=== PATIENT | male | born 1945 | race Caucasian/White ===

== ENCOUNTER → 2021-09-28 08:50 | Outpatient (BNVA) | payer MEDICARE, SELFPAY | PROVIDERS: Family Provider Internal Medicine; PCP Internal Medicine; Visit Provider Nurse Practitioner Family | DX: R33.9 Retention of urine, unspecified (principal) | CPT/HCPCS: 81003 ==

== ENCOUNTER → 2021-10-26 08:07 | Outpatient (BNVA) | payer MEDICARE, SELFPAY | PROVIDERS: Family Provider Internal Medicine; PCP Internal Medicine; Visit Provider Podiatrist Foot & Ankle Surgery | DX: M79.672 Pain in left foot (principal) | CPT/HCPCS: 73630 ==

== ENCOUNTER → 2021-12-27 09:55 | Outpatient (BNVA) | payer MEDICARE, SELFPAY | PROVIDERS: Family Provider Internal Medicine; PCP Internal Medicine; Visit Provider Urology | DX: R33.9 Retention of urine, unspecified (principal) | CPT/HCPCS: 81003 ==

== ENCOUNTER 2022-01-03 14:45 | Outpatient (CLI) | payer MEDICARE, SELFPAY | END 2022-01-03 14:46 | disposition home or self-care (01) | LOC: SPT 01-04 08:46 | PROVIDERS: Family Provider Internal Medicine; PCP Internal Medicine; Visit Provider Podiatrist Foot & Ankle Surgery | DX: Z46.89 Encounter for fitting and adjustment of other specified devices (principal); M72.2 Plantar fascial fibromatosis; M21.40 Flat foot [pes planus] (acquired), unspecified foot | CPT/HCPCS: 97760; L3030 ==

== ENCOUNTER → 2022-12-07 07:35 | Outpatient (BNVA) | payer MEDICARE, SELFPAY | PROVIDERS: Family Provider Internal Medicine; PCP Internal Medicine; Visit Provider Podiatrist Foot & Ankle Surgery | DX: L60.0 Ingrowing nail (principal) | CPT/HCPCS: 11750 ==

== ENCOUNTER 2024-12-12 17:39 | Emergency (ER) | payer MEDICARE, SELFPAY ==
[2024-12-12 17:41] VITALS: BP 146/81; PULSE 95; RESP 17; TEMP 36.8; O2SAT 95; BMI 27.1
--- NOTE | 2024-12-12 17:59 | W.ED.ALLEREA ---
Documented by User: Lei Oakley DO 12/13/24 06:30 HPI - Allergic Reaction General: Chief complaint: Allergic Reaction Stated complaint: allergic reaction Time Seen by Provider: 12/12/24 17:45 History of Present Illness: HPI narrative: 79-year-old male presents to the emergency room complaints of allergic reaction is eating several different snacks he is not sure what causes it was some table chips as well as with him that he began having difficult time feeling like he had a hot flash sensation little bit of a rash he called tell the nurse advised him to call 911 and normal and recommended route they gave him 0.3 of epi and 50 of IM Benadryl patient states he feels much better. He is not having difficulty speech swallowing or breathing. No stridor. No appreciable rash he said the flush sensation has resolved Associated symptoms: Deny abdominal pain Related Data Home Medications ?Medication ?Instructions ?Recorded ?Confirmed amlodipine 2.5 mg tablet 2.5 mg PO DAILY 09/28/21 12/07/22 losartan 100 mg tablet 100 mg PO DAILY 09/28/21 12/07/22 magnesium citrate 100 mg capsule 100 mg PO DAILY 09/28/21 12/07/22 multivitamin 1 tab PO DAILY 09/28/21 12/07/22 zinc 50 mg tablet 50 mg PO DAILY 09/28/21 12/07/22 Previous Rx's ?Medication ?Instructions ?Recorded Custom Molded Orthotics #1 ea 10/26/21 cephalexin 500 mg capsule 500 mg PO BID 7 days #14 caps 12/07/22 silver sulfadiazine 1 % topical 1 applic topical BID 2 weeks #50 12/07/22 cream grams prednisone 50 mg tablet 50 mg PO DAILY #3 tabs 12/12/24 Allergies Allergy/AdvReac Type Severity Reaction Status Date / Time No Known Allergies Allergy Verified 12/07/22 07:45 Review of Systems Const: Denies: fever(s) or chills Card: Denies: chest pain Resp: Denies: dyspnea GI: Denies: abdominal pain : Denies: dysuria, urinary frequency or urinary urgency Musc: Denies: neck pain or back pain Skin/Breast: Denies: rash PFSH ED PFSH: Medical History Peyronie disease HTN (hypertension) Urinary retention Family History Father , at age 92 Stroke Hypertension Mother , AT AGE 95 COLON CANCER Hypertension Cancer Other CAD (coronary artery disease) Social History Smoking and tobacco/nicotine status: former use of tobacco/nicotine Alcohol intake: current Alcohol intake frequency: few times a month Marital status: Current occupational status: retired Physical Exam Const: COMMON NORMALS: no acute distress GENERAL APPEARANCE: cooperative and comfortable ORIENTATION/CONSCIOUSNESS: Yes awake, Yes oriented to person, Yes oriented to place and Yes oriented to time HENMT: COMMON NORMALS: normocephalic, atraumatic and hearing grossly normal bilaterally HEAD & SCALP: normocephalic and atraumatic Resp: COMMON NORMALS: normal respiratory effort, No retractions, No use of accessory muscles and clear to auscultation bilaterally AUSCULTATION: clear to auscultation bilaterally Cardio: COMMON NORMALS: regular rate, regular rhythm and No murmurs present (Cardio) RATE: regular rate RHYTHM: regular rhythm GI: COMMON NORMALS: Soft to palpation and No hepatosplenomegaly present AUSCULTATION: Yes normoactive bowel sounds PALPATION: Yes Soft to palpation, No Tenderness to palpation present (GI), No Guarding due to palpation present (GI) and Yes No hepatosplenomegaly present Extremity: COMMON NORMALS: normal to inspection, capillary refill normal, no clubbing, cyanosis or edema, no calf tenderness and no pedal edema Neuro: SENSORIUM/ORIENTATION: Yes oriented to person, Yes oriented to place and Yes oriented to time Skin: COMMON NORMALS: no rashes or lesions noted GENERAL SKIN EXAM: no rashes or lesions noted Course Vital Signs: Vital signs: Vital Signs Temperature 98.2 F 12/12/24 17:41 Pulse Rate 79 12/12/24 20:17 Respiratory Rate 24 H 12/12/24 20:17 Blood Pressure 142/84 12/12/24 20:17 Pulse Oximetry 93 12/12/24 20:17 Oxygen Delivery Me thod Room Air 12/12/24 17:41 MDM - Allergic Reaction Medical Decision Making Care signed out to Dr. Sky at change of shift. See final notes for diagnosis and disposition. I assumed care of this patient at shift change. Patient had an allergic reaction to an unknown substance around 3 PM this afternoon. He states he ate some nuts and chocolate and also Fritos around that time. He called 911. Paramedics administered Benadryl. Patient received a steroid injection here. His symptoms have completely resolved. Patient was discharged in stable condition with a prescription for prednisone 50 mg p.o. daily for 3 days. Recommended he take Benadryl [id number] as needed. Follow-up with primary care physician on Sunday if this has not resolved. Medical Records I reviewed the patient's medical records. Lab Data I reviewed the patient's lab results. Discharge Plan Discharge Patient Disposition: Home Clinical Impression: Allergic reaction Qualifiers: Encounter type: initial encounter Qualified Code(s): T78.40XA - Allergy, unspecified, initial encounter Condition: Stable Prescriptions: New prednisone 50 mg tablet 50 mg PO DAILY Qty: 3 0RF No Action losartan 100 mg tablet 100 mg PO DAILY amlodipine 2.5 mg tablet 2.5 mg PO DAILY magnesium citrate 100 mg capsule 100 mg PO DAILY zinc 50 mg tablet 50 mg PO DAILY multivitamin Tablet 1 tab PO DAILY (DME) Custom Molded Orthotics See Rx Instructions .Route .MEDSUPPLY Qty: 1 0RF Rx Instructions: As directed silver sulfadiazine 1 % cream 1 applic topical BID 14 Days Qty: 50 2RF Rx Instructions: apply a 1.5 mm thickness cephalexin 500 mg capsule 500 mg PO BID 7 Days Qty: 14 0RF Discharge Orders: Discharge ED (Routine); Ordered 12/12/24 Ordered By: Marques Sky Referrals: Jean-Pierre Eden DO [Primary Care Provider] - Activity Restrictions/Additional Instructions: Follow-up with your physician on Sunday if not resolved. Print Language: Vincentian Coding Level of Care Code ED Financial Intern for Chg Fwd Documented by User: Marques Sky MD 12/12/24 19:26 HPI - Allergic Reaction General: Chief complaint: Allergic Reaction Stated complaint: allergic reaction Time Seen by Provider: 12/12/24 17:45 Related Data Home Medications ?Medication ?Instructions ?Recorded ?Confirmed amlodipine 2.5 mg tablet 2.5 mg PO DAILY 09/28/21 12/07/22 losartan 100 mg tablet 100 mg PO DAILY 09/28/21 12/07/22 magnesium citrate 100 mg capsule 100 mg PO DAILY 09/28/21 12/07/22 multivitamin 1 tab PO DAILY 09/28/21 12/07/22 zinc 50 mg tablet 50 mg PO DAILY 09/28/21 12/07/22 Previous Rx's ?Medication ?Instructions ?Recorded Custom Molded Orthotics #1 ea 10/26/21 cephalexin 500 mg capsule 500 mg PO BID 7 days #14 caps 12/07/22 silver sulfadiazine 1 % topical 1 applic topical BID 2 weeks #50 12/07/22 cream grams prednisone 50 mg tablet 50 mg PO DAILY #3 tabs 12/12/24 Allergies Allergy/AdvReac Type Severity Reaction Status Date / Time No Known Allergies Allergy Verified 12/07/22 07:45 PFS ED PFSH: Medical History Peyronie disease HTN (hypertension) Urinary retention Family History Father , at age 92 Stroke Hypertension Mother , AT AGE 95 COLON CANCER Hypertension Cancer Other CAD (coronary artery disease) Social History Smoking and tobacco/nicotine status: former use of tobacco/nicotine Alcohol intake: current Alcohol intake frequency: few times a month Marital status: Current occupational status: retired Course Vital Signs: Vital signs: Vital Signs Temperature 98.2 F 12/12/24 17:41 Pulse Rate 79 12/12/24 20:17 Respiratory Rate 24 H 12/12/24 20:17 Blood Pressure 142/84 12/12/24 20:17 Pulse Oximetry 93 12/12/24 20:17 Oxygen Delivery Me thod Room Air 12/12/24 17:41 MDM - Allergic Reaction Medical Decision Making I assumed care of this patient at shift change. Patient had an allergic reaction to an unknown substance around 3 PM this afternoon. He states he ate some nuts and chocolate and also Fritos around that time. He called 911. Paramedics administered Benadryl. Patient received a steroid injection here. His symptoms have completely resolved. Patient was discharged in stable condition with a prescription for prednisone 50 mg p.o. daily for 3 days. Recommended he take Benadryl [id number] as needed. Follow-up with primary care physician on Sunday if this has not resolved. No radiology studies performed this visit Discharge Plan Discharge Patient Disposition: Home Clinical Impression: Allergic reaction Qualifiers: Encounter type: initial encounter Qualified Code(s): T78.40XA - Allergy, unspecified, initial encounter Condition: Stable Prescriptions: New prednisone 50 mg tablet 50 mg PO DAILY Qty: 3 0RF No Action losartan 100 mg tablet 100 mg PO DAILY amlodipine 2.5 mg tablet 2.5 mg PO DAILY magnesium citrate 100 mg capsule 100 mg PO DAILY zinc 50 mg tablet 50 mg PO DAILY multivitamin Tablet 1 tab PO DAILY (DME) Custom Molded Orthotics See Rx Instructions .Route .MEDSUPPLY Qty: 1 0RF Rx Instructions: As directed silver sulfadiazine 1 % cream 1 applic topical BID 14 Days Qty: 50 2RF Rx Instructions: apply a 1.5 mm thickness cephalexin 500 mg capsule 500 mg PO BID 7 Days Qty: 14 0RF Discharge Orders: Discharge ED (Routine); Ordered 12/12/24 Ordered By: Marques Sky Referrals: Jean-Pierre Eden DO [Primary Care Provider] - Activity Restrictions/Additional Instructions: Follow-up with your physician on Sunday if not resolved. Print Language: Vincentian Coding Level of Care Code ED Financial Intern for Elvis Mclean
[2024-12-12] MEDS: methylPREDNISolone sod succ 125 mg/2 mL INJ IVP (18:56)
[2024-12-12 18:59] VITALS: BP 135/69; PULSE 84; O2SAT 92
[2024-12-12 19:29] VITALS: BP 137/72; PULSE 86; RESP 20; O2SAT 95
[2024-12-12 19:30] VITALS: BP 141/82; PULSE 84; RESP 28; O2SAT 91
[2024-12-12 19:45] VITALS: BP 141/82; PULSE 82; RESP 26; O2SAT 93
[2024-12-12 20:17] VITALS: BP 142/84; PULSE 79; RESP 24; O2SAT 93
== END 2024-12-12 20:34 | disposition home or self-care (01) ==
PROVIDERS: Emergency Provider Emergency Medicine; PCP Internal Medicine
DX: T78.40XA Allergy, unspecified, initial encounter (principal); X58.XXXA Exposure to other specified factors, initial encounter; I10 Essential (primary) hypertension; Z87.891 Personal history of nicotine dependence
CPT/HCPCS: 96374; 99284; J2919

== ENCOUNTER 2025-02-09 13:15 | Outpatient (CLI) | payer MEDICARE, SELFPAY ==
--- NOTE | 2025-02-09 13:45 | USCV_ITS ---
Mauricio Sanchez Age: 79 Gender: M : 1945 Exam Date: 02/09/2025 13:42 Ordering Phys: Guillermo Baez MD Technologist: USR [place] [facility]: AAA HISTORY: Diameter (cm) AP x Transverse x Length Velocity (cm/s) Waveform Prox Aorta: 1.70 x 2.16 x 86.30 Biphasic Mid Aorta: 1.86 x 1.82 x 77.80 Biphasic Distal Aorta: 2.02 x 2.39 x 5.80 53.20 Biphasic Right Iliac Prox: 0.92 x 1.08 x 87.80 Biphasic Left Iliac Prox: 1.05 x 0.97 x 86.30 Biphasic Stent Prox Landing x x Aneurysmal Sac Max x x Lt Lat Sac Dim Rt Lat Sac Dim Stent Dist Landing x x Right Iliac Stent x x Left Iliac Stent x x Right Renal Art Left Renal Art FINDINGS: Comparison:. 06/29/16 No evidence of abdominal aortic or bilateral iliac aneurysm. Ectatic abdominal aorta with evidence of atherosclerotic plaque noted. There is evidence of atherosclerotic plaque no significan stenosis in the right common iliac artery. There is evidence of atherosclerotic plaque no significan stenosis in the left common iliac artery. CONCLUSIONS Ectatic abdominal aorta with evidence of atherosclerotic plaque noted. No evidence of abdominal aortic aneurysm. Dr. Rosaline Glez DO (Electronically Signed) Final Date: 09 February 2025 15:12 S
== END 2025-02-09 13:16 | disposition home or self-care (01) ==
PROVIDERS: PCP Family Medicine; Visit Provider Family Medicine
DX: I77.811 Abdominal aortic ectasia (principal); I70.8 Atherosclerosis of other arteries
CPT/HCPCS: 93978

== ENCOUNTER → 2025-02-16 08:35 | Outpatient (BNVA) | payer MEDICARE, SELFPAY | PROVIDERS: PCP Family Medicine; Visit Provider Nurse Practitioner Family | DX: L82.1 Other seborrheic keratosis (principal); L57.8 Other skin changes due to chronic exposure to nonionizing radiation; L81.4 Other melanin hyperpigmentation; D18.01 Hemangioma of skin and subcutaneous tissue; L85.3 Xerosis cutis; D48.5 Neoplasm of uncertain behavior of skin; L57.0 Actinic keratosis | CPT/HCPCS: 11102; 17000; 69100; 99203 ==

== ENCOUNTER → 2025-03-04 08:28 | Outpatient (BNVA) | payer MEDICARE, SELFPAY | PROVIDERS: PCP Family Medicine; Visit Provider Dermatology | DX: D03.21 Melanoma in situ of right ear and external auricular canal (principal) | CPT/HCPCS: 11643; 15260 ==

== ENCOUNTER → 2025-06-16 10:25 | Outpatient (BNVA) | payer MEDICARE, SELFPAY | PROVIDERS: PCP Family Medicine; Visit Provider Nurse Practitioner Family | DX: L81.4 Other melanin hyperpigmentation (principal); L57.8 Other skin changes due to chronic exposure to nonionizing radiation; D22.5 Melanocytic nevi of trunk; L82.1 Other seborrheic keratosis; Z08 Encounter for follow-up examination after completed treatment for malignant neoplasm; Z85.820 Personal history of malignant melanoma of skin; L57.0 Actinic keratosis | CPT/HCPCS: 17004; 99213 ==

== ENCOUNTER → 2025-08-13 14:55 | Outpatient (BNVA) | payer MEDICARE, SELFPAY | PROVIDERS: PCP Family Medicine; Visit Provider Family Medicine | DX: Z91.014 Allergy to mammalian meats (principal); Z12.5 Encounter for screening for malignant neoplasm of prostate; R33.9 Retention of urine, unspecified | CPT/HCPCS: 84153; 86003; 86008 ==

== ENCOUNTER → 2025-08-19 11:20 | Outpatient (BNVA) | payer MEDICARE, SELFPAY | PROVIDERS: PCP Family Medicine; Visit Provider Dermatology | DX: L57.0 Actinic keratosis (principal) | CPT/HCPCS: 96573 ==

== ENCOUNTER 2025-08-27 15:20 | Outpatient (CLI) | payer MEDICARE, SELFPAY ==
--- NOTE | 2025-08-27 15:28 | XR_ITS ---
WS: [id number] Exam: XR knee RT 3V* [id number] Date/Time of Exam: 08/27/2025 3:37 PM Reason For Exam: right knee pain Comparison 12/26/2023. No fracture. The joint compartments are preserved. No joint effusion. Normal soft tissues. XR/XR knee RT 3V* [id number] IMPRESSION: 1. Negative RIGHT knee.
== END 2025-08-27 15:21 | disposition home or self-care (01) ==
PROVIDERS: PCP Family Medicine
DX: M25.561 Pain in right knee (principal)
CPT/HCPCS: 73562

== ENCOUNTER 2025-09-19 06:47 | Emergency (ER) | payer MEDICARE, SELFPAY ==
--- OUTSIDE RECORDS SUMMARY | 2025-09-19 06:51 | XMS_ITS | Clinical Summary ---
Author Organization [facility] Address [address] [place] [address] Care Team Providers Care Rn Behavioral Health Name Role Phone Rashawn Levine Primary Care Provider Unavail able Allergies Active Allergy Reactions Criticality Noted Date Comments Alpha-Gal (Hxebegigi-Umdyc-3,3-Galactose) Anaphylaxis High 12/26/2024 Doxycycline Unknown 01/31/2024 ?allergy Medications losartan (COZAAR) 100 mg tablet Take 1 Tablet by mouth daily. 01/11/2024 Active amLODIPine (NORVASC) 2.5 mg tablet Take 2.5 mg by mouth daily. Active multivitamin (DAILY-LAMINE) tablet Take 1 Tablet by mouth daily. 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); Epiretinal membrane (ERM) of right eye; Combined form of age-related cataract, left eye; Pseudophakia of right eye 07/14/2025 External Device Data STL ABSTRACTION Provider, Abstract 07/14/2025 External Device Data [facility] ABSTRACTION Provider, Abstract from Last 3 Months Immunizations Immunization Administration Dates Next Due Dt Dtp Dtap Vaccine 10/27/1999 Family History Medical History Relation Name Comments Stroke Father Cancer Mother Macular Degen Mother Relation Name Status Comments Father Mother Social History Tobacco Use Types Packs/Day Years Used Date Smoking Tobacco: Former Cigarettes Passive Smoke Exposure: Past Smokeless Tobacco: Never Tobacco Cessation:Counseling Given: No Comments:Smoked for a couple years in college Alcohol Use Standard Drinks/Week Comments Not Currently 0 (1 standard drink = 0.6 oz pure alcohol) 2 small glasses of wine daily Feeling Safe Answer Date Recorded Are you in a relationship wi th someone who hurts you emotionally and/or physically? 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 Gender Identity Not on file Sexual Orientation Not on file Last Filed Vital Signs Vital Sign Reading Time Taken Comments Blood Pressure 134/83 01/31/2024 5:22 PM CDT Pulse 71 01/31/2024 5:22 PM CDT Temperature 36.4 C (97.5 F) 01/31/2024 5:22 PM CDT Respiratory Rate 18 01/31/2024 5:22 PM CDT Oxygen Saturation 97% 01/31/2024 5:22 PM CDT Inhaled Oxygen Concentration - - Weight 92.5 kg (204 lb) 12/22/2024 8:04 AM APPLICATIONS ENGINEER MANUFACTURING Height 180.3 cm (5' 11 ) 12/22/2024 8:04 AM APPLICATIONS ENGINEER MANUFACTURING Body Mass Index 28.45 12/22/2024 8:04 AM APPLICATIONS ENGINEER MANUFACTURING Plan of Treatment Upcoming Encounters Date Type Department Care Team (Late st Contact Info) Description 07/20/2026 1:10 PM CDT Office Visit [facility] [place] [address] [address] Ame Marie MD [address] [place] [address] Health Maintenance Due Date Last Done Comments PNEUMOCOCCAL VACCINE 50+ YEA RS (1 of 1 - PCV) 1995 ZOSTER VACCINE (1 of 2) 1995 DTAP/TDAP/TD VACCINES (2 - Tdap) 10/27/2009 10/27/19 99 RSV VACCINE (60+ or ) (1 - 1-dose 75+ series) 2020 INFLUENZA VACCINE (#1) 2025 3, 01/05/2023, 08/01/2022, Additional history exists COVID-19 Vaccine Completed 12/05/2024, , 08/03/2023, Additional history exists Procedures Procedure Name Priority Date/Time Associated Diagnosis Comments EYE DROPS Routine 07/20/2025 2:18 PM CDT 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 OCT, RETINA - OU - BOTH EYES Routine 07/20/2025 1:11 PM CDT 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, left eye Epiretinal membrane (ERM) of right eye from Last 3 Months Results * EYE DROPS (07/20/2025 2:18 PM CDT) Narrative [facility] - 07/20/2025 2:18 PM CDT Medications Eye Drops: 2 Drop phenylephrine 2.5 % Route: Topical, Site: Eye, Bilateral ND: 64351-666-14, Lot: [id number], Expiration date: 09/28/2026 2 Drop proparacaine 0.5 % Route: Topical, Site: Eye, Bilateral NDC: 29189-138-95, Lot: [id number], Expiration date: 02/26/2027 2 Drop tropicamide 1 % Route: Topical, Site: Eye, Bilateral NDC: 71336-296-00, Lot: [id number], Expiration date: 10/29/2026 Notes Eye drop orders per protocol for Basic Language Translator Eye Exam (Dilated) 1 Drop proparacaine (OPHTHAINE) 0.5% ophthalmic solution prior to tonometry 1 Drop tropicamide (MYDRIACYL) 1% ophthalmic solution 1 Drop phenylephrine (AK-DILATE, MYDFRIN) 2.5% ophthalmic solution Ame Marie MD OPHTH CLINIC PROCEDURES Final R esult [facility] CLIA# [id number] [address] [place] [address] * OCT, RETINA - OU - BOTH EYES (07/20/2025 1:11 PM CDT) Narrative [facility] [place] - 07/20/2025 2:19 PM CDT Optical Coherence Tomography ordered to evaluate the status of the macula: RIGHT EYE: Epiretinal membrane with psedohole LEFT EYE: The OCT shows normal retinal contours, with a good foveal depression of normal thickness. The RPE appears healthy. Normal OCT Ame Marie MD OPHTH TOMOGRAPHY Final Result Performing Organization Address City/[facility] Co de Phone Number [facility] [place] OPHTH[facility]Y ORDERS from Last 3 Months Insurance [id number] [place], [place] [id number] [place] [id number] MEDICARE PART A AND B MEDICARE PART A AND B [facility] [id number] Care Teams Rn Behavioral Health Relationship Specialty Start Date End Date Rashawn Levine PA NO ADDRESS ON FILE PCP - General 04/09/08
--- OUTSIDE RECORDS SUMMARY | 2025-09-19 06:51 | XMS_ITS | Encounter Summary ---
Author Organization [facility] Address [address] [place] [address] Care Team Providers Care Regional Liaison Name Role Phone Rashawn Levine Primary Care Provider Unavail able Encounter Details Date Type Department Care Team (Late st Contact Info) Description 12/10/2002 Outpatient Historical [facility] Family Medicine- [address] [address] Larry Dumont MD [address] [phone] Social History Tobacco Use Types Packs/Day Years Used Date Smoking Tobacco: Never Assessed Sex and Gender Information Value Date Recorded Sex Assigned at Not on file 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
--- OUTSIDE RECORDS SUMMARY | 2025-09-19 06:51 | XMS_ITS | Encounter Summary ---
Author Organization 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
--- OUTSIDE RECORDS SUMMARY | 2025-09-19 06:51 | XMS_ITS | Clinical Summary ---
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
--- OUTSIDE RECORDS SUMMARY | 2025-09-19 06:51 | XMS_ITS | Encounter Summary ---
Author Organization [facility] Address [address] [place] [address] Care Team Providers Care Bill Peddler Name Role Phone Rashawn Levine Primary Care Provider Unavail able Encounter Details Date Type Department Care Team (Latest Contact Info) Description 10/14/2002 Outpatient Historical [facility] Medicine- [place] [id number] [place] [address] Larry Dumont MD [address] [address] HYPERTENSION NOS (Primary Dx); SCREENING MAL NEOP-PROSTATE Social History Tobacco Use Types Packs/Day Years Used Date Smoking Tobacco: Never Assessed Sex and Gender Information Value Date Recorded Sex Assigned at Not on file Legal Sex Male 4:40 AM PRESS SET UP Gender Identity Not on file Sexual Orientation Not on file documented as of this encounter Plan of Treatment Not on file documented as of this encounter Visit Diagnoses Diagnosis Unspecified essential hypertension- Primary Special screening for malignant neoplasm of prostate documented in this encounter Care Teams Bill Peddler Relationship Specialty Start Date End Date Rashawn Levine PA NO ADDRESS ON FILE PCP - General 04/09/08 documented as of this encounter
--- OUTSIDE RECORDS SUMMARY | 2025-09-19 06:51 | XMS_ITS | Encounter Summary ---
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
--- OUTSIDE RECORDS SUMMARY | 2025-09-19 06:51 | XMS_ITS | Encounter Summary ---
Author Organization [facility] Address [address] [place] [address] Care Team Providers Care Blend Plant Operator Name Role Phone Rashawn Levine Primary Care Provider Unavail able Encounter Details Date Type Department Care Team (Latest Contact Info) Description 01/16/2002 Outpatient Historical [facility] Family Medicine- [place] [id number] [place] [address] Larry Dumont MD [address] [phone] HYPERTENSION NOS (Primary Dx) Social History Tobacco Use Types Packs/Day Years Used Date Smoking Tobacco: Never Assessed Sex and Gender Information Value Date Recorded Sex Assigned at Not on file 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
--- OUTSIDE RECORDS SUMMARY | 2025-09-19 06:51 | XMS_ITS | Data Portability ---
Author Organization [facility] Scottie Leon [facility] Address [address] [address] Assessment Encounter Date Assessment Date Assessment LastModified by Organization Details LastModified Time 10/08/2024 10/08/2024 Patient presente d to office today for their Medicare Annual Wellness Visit. Education was provided on healthy nutrition, including a diet rich in fruits and vegetables, minimizing simple carbohydrates, salt, and saturated fats. Encouraged regular cardiovascular exercise such as walking at least 30 minutes daily, 5 times per week. Emphasized preventive health measures and educated pt on fall prevention and community-based lifestyle interventions to help reduce health risks and promote healthy living. Not available 10/08/2024 16:00:46 Plan of Treatment Reminders Order Date Submit Date Provider Last Modified By Organization Details Last Modified Time Details Appointments None recorded. Lab CMP, serum or plasma 2023 024 ADINA [facility], [address] [facility] [address], [address], 5 14:51:07 TSH, serum or plasma 2022 023 [facility] ([facility]), [address] [place], [address], 3 11:55:10 PSA, serum or plasma 2022 023 [facility], [address] [place] [address], [address] [place], [address], 3 06:19:29 Referral urologist referral 2022 023 [email or web address] Not available 3 16:24:01 Procedures cerumen removal using irrigation (PROC) 2023 024 [email or web address] 2 [facility], [address] [facility], [facility], [place], [address], 4 10:55:11 Surgeries None recorded. Imaging XR, knee, 3 view 2023 024 ADINA Not available 4 17:00:41 Medication Orders EpiPen 2-Willis 0.3 mg/0.3 mL injection, auto-inject or 2024 025 [facility], [address] [facility] [address], [place], [place], [id number], 5 12:34:05 losartan 100 mg tablet 2022 023 [facility], [address] [facility] [address] [facility] [address], [place], [place], [id number], 4 11:41:14 amlodipine 2.5 mg tablet 2022 023 [facility], [address] [facility] [address], [place], [place], [id number], 4 11:41:15 Patient TargetsNo targets recorded. Patient Instructions Encounter Date Encounter Id Patient Instructions Last Modified By Organization Details Last Modified Time 12/26/2023 [id number] ears cleaned ernesto e sure no broken bone in knee; much better [email or web address] Not available 12/26/2023 11:01:17 10/08/2024 [id number] advance care planning: care instructions Not available 10/16/2024 13:35:10 preventing falls : care instructions Not available 10/16/2024 13:35:10 Learning About Being Physically Active Not available 10/16/2024 13:35:09 nutrition for older adults: care instructions Not available 10/16/2024 13:35:09 Call or return for questions or concerns. Not available 10/08/2024 16:07:10 Discussed and explained advance directives such as standard forms to the patient. 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 Referring Physician: Jean-Pierre Eden, Internal Medicine, Encounter Date: 06/18/2023 Results Created Date Observation Date Name Description Value Unit Range Abnormal Flag Note LastModifiedBy Organization Detail LastModifiedTime 06/18/2006/18/2023 CBC WBC 6.9 x10 4.5-10 .5 Not Available [facility] [address], [place], [address], 06/18/2023 12:01:41 06/18/20 23 06/18/2023 CBC RBC 4.55 x10 4.30-5 .90 Not Available [facility] [address], [place], [address], 06/18/2023 12:01:41 06/18/20 23 06/18/2023 CBC HGB 15.2 g/dL 13.5-1 8.0 Not Available [facility] [address] [facility] 1, [place], [address], 06/18/2023 12:01:41 06/18/20 23 06/18/2023 CBC HCT 43.7 % 35.0-6 0.0 Not Available [facility] [address], [place], [address], 06/18/2023 12:01:41 06/18/20 23 06/18/2023 CBC MCV 96.1 fL 80.0-9 9.9 Not Available [facility] [address], [place], [address], 06/18/2023 12:01:41 06/18/20 23 06/18/2023 CBC MCH 33.4 pg 27.0-3 2.0 high Not Available [facility] [address] [facility] Beltr[facility] 1, [place], [address], 06/18/2023 12:01:41 06/18/20 23 06/18/2023 CBC MCHC 34.7 g/dL 32.0-3 6.0 Not Available [facility] [address] [facility] 1, [place], [address], 06/18/2023 12:01:41 06/18/20 23 06/18/2023 CBC RDW 12.9 % 11.5-1 4.5 Not Available [facility] [address] [facility], [place], [address], 06/18/2023 12:01:41 06/18/20 23 06/18/2023 CBC plt 202.8 x10 150.0- 451.0 Not Available [facility] [address] [facility] 1, [place], [address], 06/18/2023 12:01:41 06/18/20 23 06/18/2023 CBC lymphocytes % 23.9 % 20.0-5 0.0 Not Available [facility] [address] [facility], [place], [address], 06/18/2023 12:01:41 06/18/20 23 06/18/2023 CBC granulcytes % 60.8 % 30.0-7 0.0 Not Available [facility] [address] [facility] Leigh Ann [facility] 1, [place], [address], 06/18/2023 12:01:41 06/18/20 23 06/18/2023 CBC monocytes % 7.9 % 2.0-10 .0 Not Available [facility] [address] [facility] [address] [address], [place], [address], 06/18/2023 12:01:41 06/18/20 23 06/18/2023 CBC granulcytes# 4.2 x10 Not Nika ilable [facility] [address] [facility], [place], [address], 06/18/2023 12:01:41 06/18/20 23 06/18/2023 CBC lymphocytes # 1.7 x10 Not Available [facility] [address] [address], [place], [address], 06/18/2023 12:01:41 06/18/20 23 06/18/2023 CBC monocytes # 0.5 x10 Not Avai lable [facility] [address] [address], [place], [address], 06/18/2023 12:01:41 06/18/20 23 06/18/2023 CMP (MALE ) glucose 99.0 mg/dL 60.0-9 9.0 Not Available [facility] [address] [address], [place], [address], 06/18/2023 13:01:11 06/18/20 23 06/18/2023 CMP (MALE ) BUN (blood urea nitrogen) 13.0 mg/dL 10.0-2 6.0 Not Available [facility] [address] [address], [place], [address], 06/18/2023 13:01:11 06/18/20 23 06/18/2023 CMP (MALE ) creatinine (serum) 0.8 mg/dL 0.4-1. 5 Not Available [facility] [address] [facility] [address] [address], [place], [address], 06/18/2023 13:01:11 06/18/20 23 06/18/2023 CMP (MALE ) BUN/creatini ne ratio 16.25 ratio Not Available [facility] [address] [facility] Kellere [facility] 1, [place], [address], 06/18/2023 13:01:11 06/18/20 23 06/18/2023 CMP (MALE ) eGFR calculated 99.6 Not Available [facility] [address] [facility], [place], [address], 06/18/2023 13:01:11 06/18/20 23 06/18/2023 CMP (MALE ) total protein 7.1 g/dL 6.0-8. 5 Not Available [facility] [address] [facility], [place], [address], 06/18/2023 13:01:11 06/18/20 23 06/18/2023 CMP (MALE ) total bilirubin 0.7 mg/dL 0.2-1. 3 Not Available [facility] [address] [facility], [place], [address], 06/18/2023 13:01:11 06/18/20 23 06/18/2023 CMP (MALE ) albumin 4.1 g/dL 3.5-5. 5 Not Available [facility] [address] [facility], [place], [address], 06/18/2023 13:01:11 06/18/20 23 06/18/2023 CMP (MALE ) globulin 3.0 calc Not Available [facility] [address] [facility], [place], [address], 06/18/2023 13:01:11 06/18/20 23 06/18/2023 CMP (MALE ) AST (SGOT) 24.0 U/L 0.0-46 .0 Not Available [facility] [address] [facility], [place], [address], 06/18/2023 13:01:11 06/18/20 23 06/18/2023 CMP (MALE ) altv (SGPT) 35.0 U/L 13.0-6 9.0 normal Not Available [facility] [address] [facility], [place], [address], 06/18/2023 13:01:11 06/18/20 23 06/18/2023 CMP (MALE ) A/G ratio 1.4 ratio Not Available Ros[facility] [address] [facility] 1, [place], [address], 06/18/2023 13:01:11 06/18/20 23 06/18/2023 CMP (MALE ) ALP phos 78.0 U/L 30.0-1 40.0 normal Not Available [facility] [address] [facility] 1, [place], [address], 06/18/2023 13:01:11 06/18/20 23 06/18/2023 CMP (MALE ) calcium 9.2 mg/dL 8.4-10 .5 Not Available [facility] [address] [facility] 1, [place], [address], 06/18/2023 13:01:11 06/18/20 23 06/18/2023 CMP (MALE ) sodium 141.0 mmol/ L 136.0- 145.0 Not Available [facility] [address] [facility] 1, [place], [address], 06/18/2023 13:01:11 06/18/20 23 06/18/2023 CMP (MALE ) potassium 4.4 mmol/ L 3.5-5. 1 Not Available [facility] [address] [facility] 1, [place], [address], 06/18/2023 13:01:11 06/18/20 23 06/18/2023 CMP (MALE ) chloride 107.0 mmol/ L 98.0-1 10.0 normal Not Available [facility] [address]ellere [facility] 1, [place], [address], 06/18/2023 13:01:11 06/18/20 23 06/18/2023 CMP (MALE ) C02 24.0 mmol/ L 22.0-3 1.0 Not Available [facility] [address] [facility] 1, [place], [address], 06/18/2023 13:01:11 06/18/20 23 06/18/2023 CMP (MALE ) anion gap 10.0 calc Not Available Roshan [facility] [address] [facility] 1, [place], [address], 06/18/2023 13:01:11 06/18/20 23 06/18/2023 CMP (MALE ) osmolality 291.3 calc Not Available [facility] [address] [facility] 1, [place], [address], 06/18/2023 13:01:11 06/18/20 23 06/18/2023 LIPID PROFI LE (MALE ) cholesterol 189.0 mg/dL 0.0-20 0.0 Not Available [facility] [address] Beltr[address] [facility] 1, [place], [address], 06/18/2023 13:01:16 06/18/20 23 06/18/2023 LIPID PROFI LE (MALE ) trig 98.0 mg/dL 0.0-15 0.0 Not Available [facility] [address] [facility] 1, [place], [address], 06/18/2023 13:01:16 06/18/20 23 06/18/2023 LIPID PROFI LE (MALE ) HDL - direct 43.0 mg/dL >40.0 Not Available [facility] [address] [facility] 1, [place], [address], 06/18/2023 13:01:16 06/18/20 23 06/18/2023 LIPID PROFI LE (MALE ) VLDL - direct 19.6 mg/dL Not Available [facility] [address] [facility] 1, [place], [address], 06/18/2023 13:01:16 06/18/20 23 06/18/2023 LIPID PROFI LE (MALE ) LDL - direct 126.4 mg/dL 0.0-13 0.0 Not Available [facility] [address] [facility] 1, [place], [address], 06/18/2023 13:01:16 06/18/20 23 06/19/2023 PSA, TOTAL PSA, total 3.60 NG/mL < or = 4.00 normal The total PSA value from this assay syste m is stand ardiz ed again st the WHO stand [place]. The test resul t will be appro ximat jessica 20% lower when ravi red to the equim olar- stand ardiz ed total PSA (Akins man Coult er). Ravi rison of seria l PSA resul ts shoul d be inter prete d with this fact in mind. This test was perfo rmed using the [employer] ns chemi lumin escen t metho d. Value s obtai coni from diffe rent assay metho ds canno t be used inter [place] . PSA level s, regar dless of value , shoul d not be inter prete d as absol alturas evide nce of the prese nce or absen ce of disea se. Not Available [employer] [facility] [id number] , [place], [address], 06/19/2023 06:19:29 06/18/2006/18/2023 TSH, serum or plasm a TSH 0.42 uIU/m L 0.49-3 .82 Not Available [facility] ([facility]) [address] [place], [address], 06/18/2023 10:16:27 12/18/20 24 10/15/2024 CBC WBC 7.2 x10 4.5-10 .5 Not Available [facility] [address], [place], [address], 10/15/2024 09:31:51 10/15/20 24 10/15/2024 CBC RBC 4.76 x10 4.30-5 .90 Not Available [facility] [address], [place], [address], 10/15/2024 09:31:51 10/15/20 24 10/15/2024 CBC HGB 15.2 g/dL 13.5-1 8.0 Not Available [facility] [address], [place], [address], 10/15/2024 09:31:51 10/15/20 24 10/15/2024 CBC HCT 44.3 % 35.0-6 0.0 Not Available [facility] [address], [place], [address], 10/15/2024 09:31:51 10/15/20 24 10/15/2024 CBC MCV 93.1 fL 80.0-9 9.9 Not Available [facility] [address], [place], [address], 10/15/2024 09:31:51 10/15/20 24 10/15/2024 CBC MCH 31.9 pg 27.0-3 2.0 Not Available [facility] [address], [place], [address], 10/15/2024 09:31:51 10/15/20 24 10/15/2024 CBC MCHC 34.3 g/dL 32.0-3 6.0 Not Available [facility] [address], [place], [address], 10/15/2024 09:31:51 10/15/20 24 10/15/2024 CBC RDW 13.1 % 11.5-1 4.5 Not Available [facility] [address] Beltr[address] [facility] 1, [place], [address], 10/15/2024 09:31:51 10/15/20 24 10/15/2024 CBC plt 197.5 x10 150.0- 451.0 Not Available [facility] [address] [facility] 1, [place], [address], 10/15/2024 09:31:51 10/15/20 24 10/15/2024 CBC lymphocytes % 23.8 % 20.0-5 0.0 Not Available [facility] [address] [facility] 1, [place], [address], 10/15/2024 09:31:51 10/15/20 24 10/15/2024 CBC granulcytes % 63.1 % 30.0-7 0.0 Not Available [facility] [address] Ann [facility] 1, [place], [address], 10/15/2024 09:31:51 10/15/20 24 10/15/2024 CBC monocytes % 9.2 % 2.0-16 .0 Not Available [facility] [address] [facility] 1, [place], [address], 10/15/2024 09:31:51 10/15/20 24 10/15/2024 CBC granulcytes# 4.6 x10 Not Nika ilable [facility] [address] [facility] 1, [place], [address], 10/15/2024 09:31:51 10/15/20 24 10/15/2024 CBC lymphocytes # 1.7 x10 Not Available [facility] [address] [facility] 1, [place], [address], 10/15/2024 09:31:51 10/15/20 24 10/15/2024 CBC monocytes # 0.7 x10 Not [facility]ai [facility] [address] [facility] 1, [place], [address], 10/15/2024 09:31:51 10/15/20 24 10/15/2024 CMP (MALE ) glucose 108.0 mg/dL 60.0-9 9.0 high Not Available [facility] [address] [facility] 1, [place], [address], 10/15/2024 10:01:42 10/15/20 24 10/15/2024 CMP (MALE ) BUN (blood urea nitrogen) 17.0 mg/dL 10.0-2 6.0 Not Available [facility] [address] [address], [place], [address], 10/15/2024 10:01:42 10/15/20 24 10/15/2024 CMP (MALE ) creatinine (serum) 0.8 mg/dL 0.4-1. 5 Not Available [facility] [address] [address], [place], [address], 10/15/2024 10:01:42 10/15/20 24 10/15/2024 CMP (MALE ) BUN/creatini ne ratio 21.25 ratio Not Available [facility] [address] [address], [place], [address], 10/15/2024 10:01:42 10/15/20 24 10/15/2024 CMP (MALE ) eGFR calculated 99.1 Not Available [facility] [address] [facility] 1, [place], [address], 10/15/2024 10:01:42 10/15/20 24 10/15/2024 CMP (MALE ) total protein 7.4 g/dL 6.0-8. 5 Not Available [facility] [address] [facility] 1, [place], [address], 10/15/2024 10:01:42 10/15/20 24 10/15/2024 CMP (MALE ) total bilirubin 0.6 mg/dL 0.2-1. 3 Not Available [facility] [address] [facility] 1, [place], [address], 10/15/2024 10:01:42 10/15/20 24 10/15/2024 CMP (MALE ) albumin 4.0 g/dL 3.5-5. 5 Not Available [facility] [address] [facility] 1, [place], [address], 10/15/2024 10:01:42 10/15/20 24 10/15/2024 CMP (MALE ) globulin 3.4 calc Not Available Roshan [facility] [address] [facility] 1, [place], [address], 10/15/2024 10:01:42 10/15/20 24 10/15/2024 CMP (MALE ) AST (SGOT) 27.0 U/L 0.0-46 .0 Not Available [facility] [address] [facility] 1, [place], [address], 10/15/2024 10:01:42 10/15/20 24 10/15/2024 CMP (MALE ) altv (SGPT) 33.0 U/L 13.0-6 9.0 normal Not Available [facility] [address] [facility] 1, [place], [address], 10/15/2024 10:01:42 10/15/20 24 10/15/2024 CMP (MALE ) A/G ratio 1.2 ratio Not Available Roshan [facility] [address] [facility] 1, [place], [address], 10/15/2024 10:01:42 10/15/20 24 10/15/2024 CMP (MALE ) ALP phos 94.0 U/L 30.0-1 40.0 normal Not Available [facility] [address] [facility], [place], [address], 10/15/2024 10:01:42 10/15/20 24 10/15/2024 CMP (MALE ) calcium 9.5 mg/dL 8.4-10 .5 Not Available [facility] [address] [facility], [place], [address], 10/15/2024 10:01:42 10/15/20 24 10/15/2024 CMP (MALE ) sodium 138.0 mmol/ L 136.0- 145.0 Not Available [facility] [address] [facility] 1, [place], [address], 10/15/2024 10:01:42 10/15/20 24 10/15/2024 CMP (MALE ) potassium 4.2 mmol/ L 3.5-5. 1 Not Available [facility] [address] [facility] 1, [place], [address], 10/15/2024 10:01:42 10/15/20 24 10/15/2024 CMP (MALE ) chloride 108.0 mmol/ L 98.0-1 10.0 normal Not Available [facility] [address] [facility] 1, [place], [address], 10/15/2024 10:01:42 10/15/20 24 10/15/2024 CMP (MALE ) C02 25.0 mmol/ L 22.0-3 1.0 Not Available [facility] [address] [facility] 1, [place], [address], 10/15/2024 10:01:42 10/15/20 24 10/15/2024 CMP (MALE ) anion gap 5.0 calc Not Available [facility] [address] [facility], [place], [address], 10/15/2024 10:01:42 10/15/20 24 10/15/2024 CMP (MALE ) osmolality 287.1 calc Not Available [facility] [address] [facility], [place], [address], 10/15/2024 10:01:42 10/15/20 24 10/15/2024 LIPID PROFI LE (MALE ) cholesterol 194.0 mg/dL 0.0-20 0.0 Not Available [facility] [address] [facility], [place], [address], 10/15/2024 11:56:44 10/15/20 24 10/15/2024 LIPID PROFI LE (MALE ) trig 122.0 mg/dL 0.0-15 0.0 Not Available J[facility]att [facility] [address] [facility], [place], [address], 10/15/2024 11:56:44 10/15/20 24 10/15/2024 LIPID PROFI LE (MALE ) HDL - direct 47.0 mg/dL >40.0 Not Available [facility] [address] [facility] 1, [place], [address], 10/15/2024 11:56:44 10/15/20 24 10/15/2024 LIPID PROFI LE (MALE ) VLDL - direct 24.4 mg/dL Not Available Jarratt [facility] [address] [facility], [place], [address], 10/15/2024 11:56:44 10/15/20 24 10/15/2024 LIPID PROFI LE (MALE ) LDL - direct 122.6 mg/dL 0.0-13 0.0 Not Available [facility] [address] [facility], [place], [address], 10/15/2024 11:56:44 10/15/20 24 10/15/2024 TSH TSH 0.99 uIU/m L 0.49-3 .82 normal Not Available [facility] [address] [facility] Beltr[facility], [place], [address], 10/15/2024 14:01:22 10/15/20 24 10/16/2024 PSA, TOTAL PSA, total 3.11 NG/mL < or = 4.00 normal The total PSA value from this assay syste m is stand ardiz ed again st the WHO stand [place]. The test resul t will be appro ximat jessica 20% lower when ravi red to the equim olar- stand ardiz ed total PSA (Akins man Coult er). Ravi rison of seria l PSA resul ts shoul d be inter prete d with this fact in mind. This test was perfo rmed using the [employer] ns chemi lumin escen t metho d. Value s obtai coni from diffe rent assay metho ds canno t be used inter john [place] . PSA level s, regar dless of value , shoul d not be inter prete d as absol alturas evide nce of the prese nce or absen ce of disea se. Not Available [employer] [address] [address] [place], [address], 10/16/2024 06:57:21 12/26/19 24 12/26/2023 XR, knee, 3 view No observ ation record ed. [facility] [address] [place], [address], 10/08/2024 16:01:20 Result Notes None recorded. 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 4 16:11:48 Viral hepatiti s, type A 72004254 Active 2022 Hepatiti s A; 01/06/20 11:27AM by Steve Moreno, Office Visit; Promoted ; acuity set as *; Not Available [facility] 3 03:08:46 Colonosc opy Active 2022 Colonosc opy; 1999, neg. 09/04, neg. 12/11, neg.; 01/06/20 11:27AM by Steve Moreno, Office Visit; Promoted ; acuity set as *; Not Available [facility] 3 03:08:46 Benign hyperten tacos 21848978 Active 2022 HTN; 01/06/20 11:27AM by Steve Moreno, Office Visit; Promoted ; acuity set as *; Not Available [facility] 3 03:08:47 Vasectom y Active 2022 Vasectom y; 01/06/20 11:27AM by Steve Moreno, Office Visit; Promoted ; acuity set as *; Not Available [facility] 3 03:08:47 [facility] l hyperten tacos 02338870 Active 2022 Jean-Pierre Eden, [address], [address] [place] [address] , [facility] 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 3 10:16:11 Hyperlip idemia 27430286 Active 2023 JAVIER kapoor [facility], LMauricioL.CMauricio 4 09:29:09 Anxiety 21913182 Active 2023 JAVIER kapoor [facility], L.L.CMauricio 4 09:29:15 Aortic aneurysm 06219997 Active 2023 JAVIERSAMEER kapoor [facility], LMauricioLMaxine 4 09:29:34 Problem Notes None recorded. Procedures Surgical History Date Name Laterality Status Provider Name and Address Organization Details Recorded Time Vasectomy completed LEMUEL NATHAN Chavez [facility], [place] 10/08/2024 15:53:52 Imaging Results None recorded. Procedure Notes None recorded. Medical Equipment None Reported. Allergies No known drug allergies Medications Name Sig Start Date Stop Date Status Note LastModified by Organization Details LastModified Time amlodipin e 2.5 mg tablet take ONE TABLET BY MOUTH DAILY active Not Available Not Available No t Available prednisol one acetate 1 % eye drops,[place] [employer] SHAKE LIQUID AND INSTILL 1 DROP IN RIGHT EYE FOUR TIMES DAILY 10/08 completed Not Available Not Available Not Available Silvadene 1 % topical cream apply 1.5mm thicknes s topicall y TWICE DAILY FOR TWO WEEKS 10/08 completed Not Available Not Available Not Available cephalexi n 500 mg capsule take one capsule BY MOUTH TWICE DAILY FOR SEVEN DAYS 12/26 completed Not Available Not Available Not Available prednison e 50 mg tablet TAKE ONE TABLET BY MOUTH EVERY DAY 03/11 completed Not Available Not Available Not Available epinephri ne 0.3 mg/0.3 mL injection , auto-inje ctor Inject 0.3 MG INTRAMUS CULARLY NEEDED FOR swelling , SHORTNES S OF BREATH, allergic reaction . active Not Available Not Available No t Available losartan 100 mg tablet TAKE ONE TABLET BY MOUTH DAILY active Not Available Not Available No t Available fluticaso ne propionat e 50 mcg/actua tion nasal spray,eugenia pension daily 10/08 completed Recorded 01/06/20 23 11:50AM by Chelsi Jauregui PA-C, Office Visit; Refill Quantity : 1; Applicat or; Not Available Not Available Not Available moxifloxa valerie 0.5 % eye drops INSTILL 1 DROP IN RIGHT EYE FOUR TIMES DAILY FOR 7 DAYS 10/08 completed Not Available Not Available Not Available amlodipin e besylate (bulk) daily 12/26 completed RM/AV DOC; 52882; Recorded 12/11/19 23 10:13AM by Kim Self RN (Authori heidy through Jean-Pierre Eden DO), Refill Request; Mail Order Quantity : 90 Tablet; Mail Order Days: 90 Days; Refill Quantity : 0; Not Available Not Available Not Available losartan potassium (bulk) two times daily 12/26 completed 29232; Recorded 10/10/20 22 2:08PM by Kim Self RN (Authori heidy through Jean-Pierre Eden DO), Annotati on/Adden dum; Mail Order Quantity : 45 Tablet; Mail Order Days: 90 Days; Refill Quantity : 45; Tablet; Not Available Not Available Not Available Vitals Date Recorded Body height Body mass index (BMI) Body weight Body temperature Heart rate Oxygen saturation Systolic And Diastolic Provider Name and Address Organization Details Last Updated DateTime 5 180.34 cm 28.7 kg/m2 07748.0 3 g 97.7 [degF] 78 /min 98 % 150/82 mm[Hg] Melina Lemus [facility] 5 11:21:41 Date Recorded Body height Body mass index (BMI) Body weight Heart rate Respiratory rate Oxygen saturation Systolic And Diastolic Provider Name and Address Organization Details Last Updated DateTime 4 180.34 cm 27.9 kg/m2 89206.4 7 g 79 /min 20 /min 98 % 142/76 mm[Hg] JAVIER SELF [facility] 4 10:38:02 Date Recorded Body height Body mass index (BMI) Body weight Oxygen saturation Heart rate Respiratory rate Body temperature Systolic And Diastolic Provider Name and Address Organization Details Last Updated DateTime 5 180.34 cm 27.1 kg/m2 99607.9 2 g 98 % 86 /min 16 /min 98.2 [degF] 146/78 mm[Hg] Rema Browning [facility] 5 15:06:09 Date Recorded Body height Body mass index (BMI) Body weight Respiratory rate Heart rate Oxygen saturation Systolic And Diastolic Provider Name and Address Organization Details Last Updated DateTime 3 180.34 cm 26.9 kg/m2 41404.3 3 g 16 /min 83 /min 97 % 134/76 mm[Hg] JAVIER SELF [facility] 3 09:57:36 Date Recorded Body height Body mass index (BMI) Body weight Oxygen saturation Heart rate Respiratory rate Systolic And Diastolic Provider Name and Address Organization Details Last Updated DateTime 4 180.34 cm 27.6 kg/m2 50517.2 9 g 98 % 86 /min 20 /min 150/92 mm[Hg] LEMUEL NATHAN [facility] 4 15:53:01 Social History Question Answer Notes LastModified by Tatango Details LastModified Time Tobacco Smoking Status Never Smoker JAVIER SELF [facility] 12/26/2023 10:39:54 Are You Blind Or Do You Have Difficulty Seeing? No [email or web address] Information not available 12/26/2023 Are You Deaf Or Do You Have Serious Difficulty Hearing? No [email or web address] Information not available 12/26/2023 What Was The Date Of Your Most Recent Tobacco Screening? 03/11/2025 [email or web address] Information not available 03/11/2025 Do You Have Difficulty Walking Or Climbing Stairs? No [email or web address] Information not available 12/26/2023 Sex: Unknown Functional Status Question Answer Note LastModified by Tatango Details LastModified Time Do you or have you ever used any other forms of tobacco or nicotine? No Information not available 10/08/2024 Are you able to walk independently without assistance or assistive devices? [email or web address] Information not available 12/26/2023 Do you have difficulty doing errands alone? No [email or web address] Information not available 12/26/2023 Are you able to care for yourself independently? Yes [email or web address] Information not available 12/26/2023 Do you have difficulty dressing, bathing, grooming, or toileting? No [email or web address] Information not available 12/26/2023 Do you or have you ever used any nicotine-free cigarettes, vape, or chewing tobacco? No Information not available 10/08/2024 Mental Status Question Answer Note LastModified by Organization D etails LastModified Time Do you have difficulty concentrating, remembering or making decisions? No [email or web address] Information no t available 12/26/2023 Family History Nothing Reported. Medical History Condition Response Hypertension Y Immunizations Vaccine Type Date Status Note Provider Nam e and Address Organization Details Recorded Time Influenza, split virus, trivalent, preservative 3 completed Not Available [facility] 05/26/2023 02:52:01 Influenza, high-dose, trivalent, PF 7 completed Not Available [facility] 05/26/2023 02:52:01 COVID-19, mRNA, LNP-S, bivalent, PF, 50 mcg/0.5 mL or 25mcg/0.25 mL dose 3 completed ALEX FIERRO [facility] [address] [place], [address], [facility], [facility] 10/08/2024 15:57:02 Past Encounters Encounter ID Performer Location Encounter Start Date Encounter Closed Date Diagnosis/Indication Diagnosis SNOMED-CT Code Diagnosis ICD10 Code Diagnosis IMO Codes Diagnosis Note [id number] Jean-Pierre Eden DO [facility] ([facility]) [address] [place] [address] 06/18/2023 09:45:18 06/18/2023 14:23:08 Active or passive immunization 012358775 Z23 Adult [facility] th examination 759298527 Z00.00 Essential hypertension 01736815 I10 Benign pro static hyperplasia with outflow obstruction 070078222 N40.1 [id number] Jean-Pierre Eden DO [facility] ([facility]) [address] [place] [address] 12/26/2023 10:29:12 12/26/2023 11:02:22 Hyperlipidemia 60225096 E78.5 Anxiety 39229740 F41.9 Essential hypertension 90900070 I10 Aortic aneurysm 44354035 I71.9 Benign hypertension 1072 5009 I10 fell on knee; will make sure no bone chip Pain of ri ght knee joint 9124628934 45347 M25.561 Impacted c erumen of bilateral ears 9262940556 609717 H61.23 water pik used on both ears without complicati on [id number] ALEX FIERRO [facility] ([facility]) [address] [place] [address] 10/08/2024 14:34:30 10/08/2024 16:19:00 Adult health examination 134271557 Z00.00 Screening for malignant neoplasm of prostate 831693506 Z12.5 Aortic aneurysm 71639344 I71.9 Improved with statin. Essential hypertension 37507070 I10 [id number] HUSSAIN CLAROS [facility] ([facility]) [address] [place] [address] 12/15/2024 11:11:23 12/15/2024 13:25:17 Allergic reaction 730436410 T78.40XA No current symptoms of allergic rxn. Rxn sent for pt to have epi pens on hand in case of future reactions. [id number] AYANNA LAROSE [employer] [facility] ([facility]) [address] [place] [address] 03/11/2025 15:00:15 03/11/2025 17:27:33 Otalgia of left ear 6131726747 H92.02 [id number] No abnormalit ies noted on exam. Patient may continue to wear hearing aid. Monitor for any further pain or drainage. RTC with any new or worsening symptoms. Health Concerns Section Related Observation LastModified by Organization Detai ls LastModified Time None Recorded Concern Status LastModified by Organization Details LastModified Time None Recorded Advance Directives Directive None Recorded Payers Insurance Date Sequence Insurance Name Policy Number Policy Lerma Covered Member ID Lerma Member ID Guarantor Name 03/11/2025 [place] - [id number] (MEDICARE) Mauricio Whipple [employer] [id number] Mauricio Whipple [employer] 03/11/2025 2 AARP (MEDICARE SUPPLEMENT) Mauricio Whipple [employer] [id number] Mauricio Whipple [employer] 03/11/2025 1 [place] Mauricio Whipple [employer] [id number] Mauricio Sanchez Notes Date Note Type Note Provider Name and Address Organization Details Recorded Time 06/18/2023 text/html Annual WellnessReported by PatientSocial/Behavior al HistoryFor diet and nutrition, patient reportshealthy diet. For fracture risk, patient reportsno history of fracturesandno recent explained fracture. For physical activity, patient reportsexercises on a regular basis. For additional lifestyle factors, patient reportsno tobacco use.ROS as noted in the [facility] Jean-Pierre Eden [address] [place] [address], [phone], [facility] 06/18/2023 10:18:35 12/26/2023 text/html Joint PainReport ed by PatientHPIFor quality, patient reportstinglinganddull . For location, patient reportspain is not radiatingandright knee. For severity, patient reportsno driving impairment. For duration, patient reportspresent <1 month. For associated symptoms, patient reportsno fever.ROS as noted in the [facility] Jean-Pierre Eden [address] [place] [address], [phone], [facility] 12/26/2023 11:01:34 10/08/2024 text/html Medicare Annual Wellness VisitReported by PatientSocial/Behavior al HistoryFor diet and nutrition, patient reportshealthy diet. For fracture risk, patient reportsno history of fracturesandno recent explained fracture. For physical activity, patient reportsexercises on a regular basis.Mental Status:For depression risk, patient reportsnever feels sad, empty, or tearfulandno loss of interest in activities. For orientation, patient reportsno disorientation to time,no disorientation to date, andno disorientation to place. For speech/motor difficulties, patient reportsno speech difficulties.Functiona l AbilityFor hearing, patient reportswears hearing aids. For activities of daily living, patient reportsable to bathe with limited or no assistance,able to contol urination and bowels,able to dress with limited or no assistance,able to feed self with limited or no assistance,able to get out of chair or bed with limited or no assistance,able to groom with limited or no assistance, andable to toilet with limited or no assistance. For instrumental activities of daily living, patient reportsable to do house work with limited or no assistance,able to grocery shop with limited or no assistance,able to manage medications with limited or no assistance,able to manage money with limited or no assistance,able to prepare meals with limited or no assistance, andable to use the phone with limited or no assistance. For falls risk assessment, patient reportsno frequent falls while walking.ROS as noted in the HPI ALEX FIERRO [address], [address], [facility] 10/16/2024 13:37:44 12/15/2024 text/html ROS as noted in the HPI walk in ptPt presents today requesting a rxn for an epi pen.On Sunday pt had an allergic reaction to what he thinks is flaxseed. EMS was called and pt was given benadryl on the way to the ER. ER administered epi and dc'd pt home with prednisone. Pt states he has no further rash/symptoms. [place] if he has another reaction he may need the epi pen. No prior hx of allergic rxn's. HUSSAIN CLAROS, [address], [address], [facility] 12/15/2024 14:15:58 03/11/2025 text/html EaracheReported by PatientROS as noted in the HPI walk in patientpatient is here today he is not sure if the left ear is clogged, patient said that it just feels worried when wearing a hearing aid. Denies any significant pain or drainage. AYANNA LAROSE [address], [address], [facility] 03/11/2025 17:24:10
--- OUTSIDE RECORDS SUMMARY | 2025-09-19 06:51 | XMS_ITS | Encounter Summary ---
Author Organization [facility] Address [address] [place] [address] Care Team Providers Care Security Systems Sales Representative Name Role Phone Rashawn Levine Primary Care Provider Unavail able Encounter Details Date Type Department Care Team (Latest Contact Info) Description 08/17/2003 Outpatient Historical [facility] Medicine[address] [address] Patrick Eastman MD [address] [place] [address] ACUTE URI NOS (Primary Dx); Dysfunct eustachian tube; ACUTE PHARYNGITIS; HYPERTENSION NOS Social History Tobacco Use Types Packs/Day Years Used Date Smoking Tobacco: Never Assessed Sex and Gender Information Value Date Recorded Sex Assigned at Not on file 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
--- OUTSIDE RECORDS SUMMARY | 2025-09-19 06:51 | XMS_ITS | Encounter Summary ---
Author Organization [facility] Address [address] [place] [address] Care Team Providers Care Civil Engineer In Training Name Role Phone Rashawn Levine Primary Care Provider Unavail able Encounter Details Date Type Department Care Team (Latest Contact Info) Description 06/13/2002 Outpatient Historical [facility] Medicine- [address] [place] [address] Larry Dumont MD [address] [address] HYPERTENSION NOS (Primary Dx); DIZZINESS AND GIDDINESS Social History Tobacco Use Types Packs/Day Years Used Date Smoking Tobacco: Never Assessed Sex and Gender Information Value Date Recorded Sex Assigned at Not on file 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
--- OUTSIDE RECORDS SUMMARY | 2025-09-19 06:51 | XMS_ITS | Encounter Summary ---
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
--- OUTSIDE RECORDS SUMMARY | 2025-09-19 06:51 | XMS_ITS | Encounter Summary ---
Author Organization [facility] Address [address] [place] [address] Care Team Providers Care Early Learning Teacher Name Role Phone Rashawn Levine Primary Care Provider Unavail able Encounter Details Date Type Department Care Team (Latest Contact Info) Description 06/13/2004 Outpatient Historical [facility] Medicine- [address] [address] Alize Yi MD [address] [place] [address] HYPERTENSION NOS (Primary Dx) Social History Tobacco Use Types Packs/Day Years Used Date Smoking Tobacco: Never Assessed Sex and Gender Information Value Date Recorded Sex Assigned at Not on file 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
--- OUTSIDE RECORDS SUMMARY | 2025-09-19 06:51 | XMS_ITS | Encounter Summary ---
Author Organization [facility] Address [address] [place] [address] Care Team Providers Care Diagrammer Name Role Phone Rashawn Levine Primary Care Provider Unavail able Encounter Details Date Type Department Care Team (Latest Contact Info) Description 02/21/2001 Outpatient Historical [facility] Family Medicine- [address] [place] [address] Larry Dumont MD [address] [address] Unspecified essential hypertension (Primary Dx) Social History Tobacco Use Types Packs/Day Years Used Date Smoking Tobacco: Never Assessed Sex and Gender Information Value Date Recorded Sex Assigned at Not on file 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
--- OUTSIDE RECORDS SUMMARY | 2025-09-19 06:51 | XMS_ITS | Encounter Summary ---
Author Organization [facility] Address [address] [place] [address] Care Team Providers Care Sparker And Patcher Name Role Phone Rashawn Levine Primary Care Provider Unavail able Encounter Details Date Type Department Care Team (Latest Contact Info) Description 02/04/[address] 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
--- OUTSIDE RECORDS SUMMARY | 2025-09-19 06:51 | XMS_ITS | Encounter Summary ---
Author Organization [facility] Address [address] [place] [address] Care Team Providers Care Boat Person Name Role Phone Rashawn Levine Primary Care Provider Unavail able Encounter Details Date Type Department Care Team (Latest Contact Info) Description 03/04/2001 Outpatient Historical [facility] Family Medicine- [id number] [place] [address] Larry Dumont MD [address] [address] Unspecified essential hypertension (Primary Dx) Social History Tobacco Use Types Packs/Day Years Used Date Smoking Tobacco: Never Assessed Sex and Gender Information Value Date Recorded Sex Assigned at Not on file 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
--- OUTSIDE RECORDS SUMMARY | 2025-09-19 06:51 | XMS_ITS | Encounter Summary ---
Author Organization [facility] Address [address] [place] [address] Care Team Providers Care Pet Store Merchandiser Name Role Phone Rashawn Levine Primary Care Provider Unavail able Encounter Details Date Type Department Care Team (Latest Contact Info) Description 04/01/2002 Outpatient Historical [address] [address] Melany Roman MD [facility]. 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
--- OUTSIDE RECORDS SUMMARY | 2025-09-19 06:51 | XMS_ITS | Encounter Summary ---
Author Organization [facility] Address [address] [place] [address] Care Team Providers Care Hr Assistant Name Role Phone Rashawn Levine Primary Care Provider Unavail able Encounter Details Date Type Department Care Team (Latest Contact Info) Description 02/16/2004 Outpatient Historical [facility] Medicine- [address] [address] Patrick Eastman MD [address] [place] [address] SKIN DISORDER NOS (Primary Dx); HYPERTENSION NOS; ACTINIC KERATOSIS Social History Tobacco Use Types Packs/Day Years Used Date Smoking Tobacco: Never Assessed Sex and Gender Information Value Date Recorded Sex Assigned at Not on file 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
--- OUTSIDE RECORDS SUMMARY | 2025-09-19 06:51 | XMS_ITS | Encounter Summary ---
Author Organization [facility] Address [address] [place] [address] Care Team Providers Care Boardmarker Name Role Phone Rashawn Levine Primary Care Provider Unavail able Encounter Details Date Type Department Care Team (Latest Contact Info) Description 09/11/2002 Outpatient Historical [facility] Medicine- [address] [place] [address] Larry Dumont MD [address] [address] LUMBAGO (Primary Dx); HYPERTENSION NOS Social History Tobacco Use Types Packs/Day Years Used Date Smoking Tobacco: Never Assessed Sex and Gender Information Value Date Recorded Sex Assigned at Not on file 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
--- OUTSIDE RECORDS SUMMARY | 2025-09-19 06:51 | XMS_ITS | Encounter Summary ---
Author Organization [facility] Address [address] [place] [address] Care Team Providers Care Other Sports Official Name Role Phone Rashawn Levine Primary Care Provider Unavail able Encounter Details Date Type Department Care Team (Latest Contact Info) Description 11/03/2003 Outpatient Historical [facility] [address] [address] Patrick Eastman MD [address] [place] [address] ACUTE FRONTAL SINUSITIS (Primary Dx); OTALGIA NOS; HYPERTENSION NOS Social History Tobacco Use Types Packs/Day Years Used Date Smoking Tobacco: Never Assessed Sex and Gender Information Value Date Recorded Sex Assigned at Not on file 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
--- OUTSIDE RECORDS SUMMARY | 2025-09-19 06:51 | XMS_ITS | Encounter Summary ---
Author Organization [facility] Address [address] [place] [address] Care Team Providers Care Extension Course Counselor Name Role Phone Rashawn Levine Primary Care Provider Unavail able Encounter Details Date Type Department Care Team (Latest Contact Info) Description 12/05/2000 Outpatient Historical [facility] Medicine- [id number] [place] [address] Larry Dumont MD [address] [address] Acute frontal sinusitis (Primary Dx) Social History Tobacco Use Types Packs/Day Years Used Date Smoking Tobacco: Never Assessed Sex and Gender Information Value Date Recorded Sex Assigned at Not on file 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
--- OUTSIDE RECORDS SUMMARY | 2025-09-19 06:51 | XMS_ITS | Encounter Summary ---
Author Organization [facility] Address [address] [place] [address] Care Team Providers Care Byproducts Pump Operator Name Role Phone Rashawn Levine Primary Care Provider Unavail able Encounter Details Date Type Department Care Team (Latest Contact Info) Description 03/15/2000 Outpatient Historical [address] [address] Patrick Eastman MD [address] [place] [address] Dysfunct eustachian tube (Primary Dx); Acute pharyngitis Social History Tobacco Use Types Packs/Day Years Used Date Smoking Tobacco: Never Assessed Sex and Gender Information Value Date Recorded Sex Assigned at Not on file 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
--- OUTSIDE RECORDS SUMMARY | 2025-09-19 06:51 | XMS_ITS | Encounter Summary ---
Author Organization [facility] Address [address] [place] [address] Care Team Providers Care Policy Advisor Name Role Phone Rashawn Levine Primary Care Provider Unavail able Encounter Details Date Type Department Care Team (Latest Contact Info) Description 07/12/2001 Outpatient Historical [facility] Medicine- [address] [place] [address] Larry Dumont MD [address] [address] Neoplasm of unspecified nature of bone, soft tissue, and skin (Primary Dx) Social History Tobacco Use Types Packs/Day Years Used Date Smoking Tobacco: Never Assessed Sex and Gender Information Value Date Recorded Sex Assigned at Not on file 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
--- OUTSIDE RECORDS SUMMARY | 2025-09-19 06:51 | XMS_ITS | Encounter Summary ---
Author Organization [facility] Address [address] [place] [address] Care Team Providers Care Newspaper Delivery Driver Name Role Phone Rashawn Levine Primary Care Provider Unavail able Encounter Details Date Type Department Care Team (Latest Contact Info) Description 04/28/2003 Outpatient Historical [facility] Family Medicine- [id number] [place] [address] Larry Dumont MD [address] [address] LUMBAGO (Primary Dx); JOINT PAIN-L/LEG Social History Tobacco Use Types Packs/Day Years Used Date Smoking Tobacco: Never Assessed Sex and Gender Information Value Date Recorded Sex Assigned at Not on file Legal Sex Male 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
--- OUTSIDE RECORDS SUMMARY | 2025-09-19 06:51 | XMS_ITS | Encounter Summary ---
Author Organization [facility] Address [address] [place] [address] Care Team Providers Care Final Inspector Motorcyles Name Role Phone Rashawn Levine Primary Care Provider Unavail able Encounter Details Date Type Department Care Team (Latest Contact Info) Description 11/08/1999 Outpatient Historical [facility] Family Medicine- [address] [place] [address] Larry Dumont MD [address] [address] Routine medical exam (Primary Dx) Social History Tobacco Use Types Packs/Day Years Used Date Smoking Tobacco: Never Assessed Sex and Gender Information Value Date Recorded Sex Assigned at Not on file 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
--- OUTSIDE RECORDS SUMMARY | 2025-09-19 06:51 | XMS_ITS | Encounter Summary ---
Author Organization [facility] Address [address] [place] [address] Care Team Providers Care Finishing Range Supervisor Name Role Phone Rashawn Levine Primary Care Provider Unavail able Encounter Details Date Type Department Care Team (Latest Contact Info) Description 12/10/2002 Outpatient Historical [facility] Medicine- [id number] [place] [address] Larry Dumont MD [address] [address] HYPERTENSION NOS (Primary Dx) Social History Tobacco Use Types Packs/Day Years Used Date Smoking Tobacco: Never Assessed Sex and Gender Information Value Date Recorded Sex Assigned at Not on file Legal Sex Male 4:40 AM TYPING CHECKER Gender Identity Not on file Sexual Orientation Not on file documented as of this encounter Plan of Treatment Not on file documented as of this encounter Visit Diagnoses Diagnosis Unspecified essential hypertension- Primary documented in this encounter Care Teams Finishing Range Supervisor Relationship Specialty Start Date End Date Rashawn Levine PA NO ADDRESS ON FILE PCP - General 04/09/08 documented as of this encounter
--- OUTSIDE RECORDS SUMMARY | 2025-09-19 06:51 | XMS_ITS | Encounter Summary ---
Author Organization [facility] Address [address] [place] [address] Care Team Providers Care Admitting Office Escort Name Role Phone Rashawn Levine Primary Care Provider Unavail able Encounter Details Date Type Department Care Team (Latest Contact Info) Description 10/28/2003 Outpatient Historical [facility] Medicine- [address] [place] [address] Larry Dumont MD [address] [address] LUMBAGO (Primary Dx) Social History Tobacco Use Types Packs/Day Years Used Date Smoking Tobacco: Never Assessed Sex and Gender Information Value Date Recorded Sex Assigned at Not on file 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
--- OUTSIDE RECORDS SUMMARY | 2025-09-19 06:51 | XMS_ITS | Encounter Summary ---
Author Organization [facility] Address [address] [place] [address] Care Team Providers Care Real Estate Appraiser Supervisor Name Role Phone Rashawn Levine Primary Care Provider Unavail able Encounter Details Date Type Department Care Team (Latest Contact Info) Description 10/27/1999 Outpatient Historical [facility] Family Medicine- [id number] [place] [address] Larry Dumont MD [address] [address] Routine medical exam (Primary Dx); Need for prophylactic vaccination with tetanus toxoid alone Social History Tobacco Use Types Packs/Day Years Used Date Smoking Tobacco: Never Assessed Sex and Gender Information Value Date Recorded Sex Assigned at Not on file 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
--- OUTSIDE RECORDS SUMMARY | 2025-09-19 06:51 | XMS_ITS | Encounter Summary ---
Author Organization [facility] Address [address] [place] [address] Care Team Providers Care Pulp Maker Name Role Phone Rashawn Levine Primary Care Provider Unavail able Encounter Details Date Type Department Care Team (Latest Contact Info) Description 03/14/2004 Outpatient Historical [facility] [address] [address] Patrick Eastman MD [address] [place] [address] ACTINIC KERATOSIS (Primary Dx) Social History Tobacco Use Types Packs/Day Years Used Date Smoking Tobacco: Never Assessed Sex and Gender Information Value Date Recorded Sex Assigned at Not on file Legal Sex Male 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
[2025-09-19 06:55] VITALS: BP 146/79; PULSE 89; RESP 17; TEMP 36.4; O2SAT 95; BMI 26.4
--- NOTE | 2025-09-19 07:05 | W.ED.ALLEREA ---
HPI - Allergic Reaction General: Chief complaint: Allergic Reaction Stated complaint: allergic reaction Time Seen by Provider: 09/19/25 07:03 History of Present Illness: HPI narrative: 80-year-old man with a history of alpha gal who presents to the emergency room after having an allergic reaction to a meatball he ate last night. Unclear why he ate 1 when he knew he has anaphylaxis to this. He had to take his EpiPen. He said he felt short of breath and just a tingling feeling all over. He has no apparent tongue or lip swelling. No feeling of airway closure. O2 sats are good on room air. He is not tachypneic. Related Data Home Medications ?Medication ?Instructions ?Recorded ?Confirmed multivitamin 1 tab PO DAILY 09/28/21 08/27/25 Previous Rx's ?Medication ?Instructions ?Recorded Custom Molded Orthotics #1 ea 10/26/21 epinephrine 0.3 mg/0.3 mL 0.3 mg (0.3 mL) IM Q10M PRN 01/06/25 injection, auto-injector (EpiPen) anaphylaxis #1 ea sildenafil 50 mg tablet (Viagra) 50 mg PO DAILY PRN sexual activity 01/06/25 #20 tabs finasteride 5 mg tablet 5 mg PO DAILY #30 tabs 08/17/25 losartan 100 mg tablet 100 mg PO DAILY #90 tabs 08/25/25 amlodipine 2.5 mg tablet 2.5 mg PO DAILY #90 tabs 08/26/25 prednisone 20 mg tablet 60 mg (3 x 20 mg) PO DAILY 5 days 09/19/25 #15 tabs Allergies Allergy/AdvReac Type Severity Reaction Status Date / Time doxycycline Allergy Mild ALGY-Rash Verified 08/27/25 14:50 Alpha gal Allergy Severe Unresponsiv Uncoded 08/27/25 14:43 e Review of Systems Narrative: Constitutional symptoms: Negative except as documented in HPI. Skin symptoms: Negative except as documented in HPI. Eye symptoms: Negative except as documented in HPI. ENMT symptoms: Negative except as documented in HPI. Respiratory symptoms: Negative except as documented in HPI. Cardiovascular symptoms: Negative except as documented in HPI. Gastrointestinal symptoms: Negative except as documented in HPI. Genitourinary symptoms: Negative except as documented in HPI. Musculoskeletal symptoms: Negative except as documented in HPI. Neurologic symptoms: Negative except as documented in HPI. Psychiatric symptoms: Negative except as documented in HPI. Endocrine symptoms: Negative except as documented in HPI. PFSH ED PFSH: Medical History (Updated 09/19/25 @ 07:56 by Deann Munoz MD) Seborrheic keratoses Alpha-gal syndrome Chronic back pain Essential hypertension Spinal stenosis AAA (abdominal aortic aneurysm) Benavides's neuroma Peripheral neuropathy Peyronie disease HTN (hypertension) Urinary retention Surgical History Hx of vasectomy Family History Father , at age 92 Stroke Hypertension Mother , AT AGE 95 COLON CANCER Hypertension Cancer Other CAD (coronary artery disease) Social History Smoking and tobacco/nicotine status: former use of tobacco/nicotine Alcohol intake: current Alcohol intake frequency: few times a month Marital status: Current occupational status: retired Physical Exam Narrative: EXAM NARRATIVE: General: Alert, no acute distress. Skin: Warm, dry. Head: Normocephalic, atraumatic. Neck: Supple, trachea midline. Eye: Extraocular movements are intact. Ears, nose, mouth and throat: mucosa moist. Cardiovascular: Regular, Normal peripheral perfusion. Respiratory: Lungs are clear to auscultation, respirations are non-labored, breath sounds are equal, Symmetrical chest wall expansion. Gastrointestinal: Soft, Nontender, Non distended Musculoskeletal: Normal ROM, no deformity. Neurological: Alert and oriented, No focal neurological deficit observed. Psychiatric: Cooperative, appropriate mood & affect. Course Vital Signs: Vital signs: Vital Signs Temperature 97.5 F L 09/19/25 06:55 Pulse Rate 79 09/19/25 07:39 Respiratory Rate 17 09/19/25 07:39 Blood Pressure 127/73 09/19/25 07:39 Pulse Oximetry 93 09/19/25 07:39 Oxygen Delivery Me thod Room Air 09/19/25 07:39 MDM - Allergic Reaction Medical Decision Making Medical decision making Patient's reason for coming to the emergency room: Allergic reaction. Alpha gal Social determinants: I reviewed the patient's medical record. Patient most recently seen by his family doctor for knee pain. I reviewed the patient's current home meds Patient has an EpiPen at home. Takes amlodipine for hypertension as well as losartan Alternate historians: None Differential diagnosis including but not limited to and based on the above HPI, review of systems and physical exam: In a patient with complaints of allergic reaction have concern for anaphylaxis, medication reactions and viral reactions. Orders placed to evaluate differential diagnosis based on the above differential, HPI and physical exam Reexamination: Patient has remained stable. No oxygen requirements. No chest pain. No altered mental status. Assessment and plan: Allergic reaction ?Solu-Medrol, Pepcid and Benadryl IV in the emergency room - Discharged home - Discussed plan with patient. Answered any questions. - Evaluation and treatment of this problem were appropriate in the emergency setting. No radiology studies performed this visit Discharge Plan Discharge Patient Disposition: Home Clinical Impression: Allergic reaction Condition: Stable Prescriptions: New prednisone 20 mg tablet 60 mg PO DAILY 5 Days Qty: 15 0RF No Action multivitamin Tablet 1 tab PO DAILY (DME) Custom Molded Orthotics See Rx Instructions .Route .MEDSUPPLY Qty: 1 0RF Rx Instructions: As directed epinephrine [EpiPen] 0.3 mg/0.3 mL auto-injector 0.3 mg IM Q10M PRN (Reason: anaphylaxis) Qty: 1 0RF Rx Instructions: for 2 doses sildenafil [Viagra] 50 mg tablet 50 mg PO DAILY PRN (Reason: sexual activity) Qty: 20 0RF Rx Instructions: administer 30 minutes to 4 hours before activity finasteride 5 mg tablet 5 mg PO DAILY Qty: 30 3RF losartan 100 mg tablet 100 mg PO DAILY Qty: 90 0RF amlodipine 2.5 mg tablet 2.5 mg PO DAILY Qty: 90 0RF Discharge Orders: Discharge ED (Routine); Ordered 09/19/25 Ordered By: Deann Munoz Referrals: Guillermo Baez MD [Primary Care Provider, Family Practice] Discharge Diet: Advance as tolerated Patient Instructions: Food Allergy (ED), Opioid Safety, Pain Management, Patient Portal & Vita Instructions Activity Restrictions/Additional Instructions: Thank you for choosing [facility] for your healthcare needs today. You have been screened and evaluated and felt safe for discharge. Health conditions do change or evolve sometimes and as such it is important that you follow up with your Primary Doctor to be re checked, 3-5 days is a general good time frame for follow up. You are always welcome to return to the ED for re assessment if your symptoms are worsening or you have new concerns Print Language: Micronesian Coding Level of Care Code ED Bilingual Recruiter for Elvis Mclean
[2025-09-19] MEDS: methylPREDNISolone sod succ 125 mg/2 mL INJ IVP (07:10)
[2025-09-19] MEDS: diphenhydrAMINE 50 mg/mL SDV 1mL IVP (07:14)
[2025-09-19 07:39] VITALS: BP 127/73; PULSE 79; RESP 17; O2SAT 93
[2025-09-19 08:13] VITALS: BP 123/72; PULSE 75; O2SAT 92
== END 2025-09-19 08:16 | disposition home or self-care (01) ==
PROVIDERS: Emergency Provider Emergency Medicine; PCP Family Medicine
DX: T78.40XA Allergy, unspecified, initial encounter (principal); X58.XXXA Exposure to other specified factors, initial encounter; Z87.891 Personal history of nicotine dependence; I10 Essential (primary) hypertension
CPT/HCPCS: 36415; 96374; 96375; 99284; J1200; J2919; J3490

== ENCOUNTER 2025-10-07 03:47 | Emergency (ER) | payer MEDICARE, SELFPAY ==
[2025-10-07 03:47] VITALS: BP 142/69; PULSE 84; RESP 18; TEMP 36.7; O2SAT 99; BMI 26.4
--- OUTSIDE RECORDS SUMMARY | 2025-10-07 03:52 | XMS_ITS | Clinical Summary ---
Author Organization [facility] Address [address] [place] [address] Care Team Providers Care Unit Assembler Name Role Phone Rashawn Levine Primary Care Provider Unavail able Allergies Active Allergy Reactions Criticality Noted Date Comments Alpha-Gal (Dfuefhgco-Bsiql-8,3-Galactose) Anaphylaxis High 12/26/2024 Doxycycline Unknown 01/31/2024 ?allergy [...] Encounters Date Type Department Care Team Description 09/29/2025 External Device Data ST[facility] ABSTRACTION Provider, Abstract 08/19/2025 External Device Data [facility] ABSTRACTION Provider, Abstract 08/18/2025 External Device Data [facility] ABSTRACTION Provider, Abstract 07/20/2025 1:10 PM CDT Office Visit [facility] [place] [address] [address] Ame Marie MD 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 [...] on file Legal Sex Male 10:57 AM LEATHER WHITENER Gender Identity Not on file Sexual Orientation [...] 92.5 kg (204 lb) 12/22/2024 8:04 AM LEATHER WHITENER Height 180.3 cm (5' 11 ) 12/22/2024 8:04 AM LEATHER WHITENER Body Mass Index 28.45 12/22/2024 8:04 AM LEATHER WHITENER Plan of Treatment Upcoming Encounters Date Type Department Care Team (Late st Contact Info) Description 07/20/2026 1:10 PM CDT Office Visit [facility] [place] [address] [address] Ame Marie MD [address] [place] [address] Health Maintenance Due Date Last Done Comments PNEUMOCOCCAL VACCINE 50+ YEA RS (1 of 1 - PCV) 1995 ZOSTER VACCINE (1 of 2) 1995 DTAP/TDAP/TD VACCINES (2 - Tdap) 10/27/2009 10/27/19 99 RSV VACCINE (60+ or ) (1 - 1-dose 75+ series) 2020 INFLUENZA VACCINE (#1) 2025 , 01/05/2023, 08/01/2022, Additional history exists COVID-19 Vaccine ( season) 2025 12/05/2024, 06/25/2024, 08/03/2023, Additional history exists Procedures Procedure Name [...] EYE DROPS (07/20/2025 2:18 PM CDT) Narrative [facility] OPH[facility]AL[facility] - 07/20/2025 2:18 PM CDT Medications Eye Drops: 2 Drop phenylephrine 2.5 % Route: Topical, Site: Eye, Bilateral ND: [id number], Lot: [id number], Expiration date: 09/28/2026 2 Drop proparacaine 0.5 % Route: Topical, Site: Eye, Bilateral NDC: 98752-330-08, Lot: [id number], Expiration date: 02/26/2027 2 Drop tropicamide 1 % Route: Topical, Site: Eye, Bilateral NDC: [id number], Lot: [id number], Expiration date: 10/29/2026 Notes Eye drop orders per protocol for Basic Senior Revenue Accountant Eye Exam (Dilated) 1 Drop proparacaine (OPHTHAINE) 0.5% ophthalmic solution prior to tonometry 1 Drop tropicamide (MYDRIACYL) 1% ophthalmic solution 1 Drop phenylephrine (AK-DILATE, MYDFRIN) 2.5% ophthalmic solution Ame Marie MD OPHTH CLINIC PROCEDURES Final R esult Performing Organization Address [facility] Co de Phone Number [facility] CLIA# [id number] [address] [place] [address] * OCT, RETINA - OU - BOTH EYES (07/20/2025 1:11 PM CDT) Narrative [facility] - 07/20/2025 2:19 PM CDT Optical Coherence Tomography ordered to evaluate the status of the macula: RIGHT EYE: Epiretinal membrane with psedohole LEFT EYE: The OCT shows normal retinal contours, with a good foveal depression of normal thickness. The RPE appears healthy. Normal OCT Ame Marie MD OPHTH TOMOGRAPHY Final Result Performing Organization Address [facility] Co de Phone Number [facility]DERS from Last [address] [place] [address] [facility] [id number] MEDICARE PART A AND B MEDICARE PART A AND B [facility] [id number] Care Teams Unit Assembler Relationship Specialty Start Date End Date Rashawn Levine PA NO ADDRESS ON FILE PCP - General 04/09/08
--- OUTSIDE RECORDS SUMMARY | 2025-10-07 03:52 | XMS_ITS | Encounter Summary ---
Author Organization [facility] Address [address] [place] [address] Care Team Providers Care Sergeant Of Officers Name Role Phone Rashawn Levine Primary Care Provider Unavail able Encounter Details Date Type Department Care Team (Latest Contact Info) Description 06/13/2004 Outpatient Historical [facility] Medicine- [address] [address] Alize Yi MD [address] [place] [address] HYPERTENSION NOS (Primary Dx) Social History Tobacco Use Types Packs/Day Years Used Date Smoking Tobacco: Never Assessed Sex and Gender Information Value Date Recorded Sex Assigned at Not on file 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
--- OUTSIDE RECORDS SUMMARY | 2025-10-07 03:52 | XMS_ITS | Encounter Summary ---
Author Organization [facility] Address [address] [place] [address] Care Team Providers Care Cabin Cleaning Supervisor Name Role Phone Rashawn Levine Primary Care Provider Unavail able Encounter Details Date Type Department Care Team (Latest Contact Info) Description 02/16/2004 Outpatient Historical [facility] Medicine- [address] [address] Patrick Eastman MD [address] [place] [address] SKIN DISORDER NOS (Primary Dx); HYPERTENSION NOS; ACTINIC KERATOSIS Social History Tobacco Use Types Packs/Day Years Used Date Smoking Tobacco: Never Assessed Sex and Gender Information Value Date Recorded Sex Assigned at Not on file 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
--- OUTSIDE RECORDS SUMMARY | 2025-10-07 03:52 | XMS_ITS | Encounter Summary ---
Author Organization [facility] Address [address] [place] [address] Care Team Providers Care Solar Panel Installation Supervisor Name Role Phone Rashawn Levine Primary Care Provider Unavail able Encounter Details Date Type Department Care Team (Latest Contact Info) Description 08/17/2003 Outpatient Historical [facility] [address] [address] Patrick Eastman MD [address] [place] [address] ACUTE URI NOS (Primary Dx); Dysfunct eustachian tube; ACUTE PHARYNGITIS; HYPERTENSION NOS Social History Tobacco Use Types Packs/Day Years Used Date Smoking Tobacco: Never Assessed Sex and Gender Information Value Date Recorded Sex Assigned at Not on file Legal Sex Male 4: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
--- OUTSIDE RECORDS SUMMARY | 2025-10-07 03:52 | XMS_ITS | Encounter Summary ---
Author Organization [facility] Address [address] [place] [address] Care Team Providers Care Cashier Receptionist Name Role Phone Rashawn Levine Primary Care Provider Unavail able Encounter Details Date Type Department Care Team (Latest Contact Info) Description 10/14/2002 Outpatient Historical [facility] Medicine- [address] [place] [address] Larry Dumont MD [address] [address] HYPERTENSION NOS (Primary Dx); SCREENING MAL NEOP-PROSTATE Social History Tobacco Use Types Packs/Day Years Used Date Smoking Tobacco: Never Assessed Sex and Gender Information Value Date Recorded Sex Assigned at Not on file Legal Sex Male 4: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
--- OUTSIDE RECORDS SUMMARY | 2025-10-07 03:52 | XMS_ITS | Encounter Summary ---
Author Organization [facility] Address [address] [place] [address] Care Team Providers Care Cutter Grinder Operator Name Role Phone Rashawn Leivne Primary Care Provider Unavail able Encounter Details Date Type Department Care Team (Latest Contact Info) Description 10/28/2003 Outpatient Historical [facility] Medicine- [address] [place] [address] Larry Dumont MD [address] [address] LUMBAGO (Primary Dx) Social History Tobacco Use Types Packs/Day Years Used Date Smoking Tobacco: Never Assessed Sex and Gender Information Value Date Recorded Sex Assigned at Not on file Legal Sex Male 4:40 AM ETL BI DEVELOPER Gender Identity Not on file Sexual Orientation Not on file documented as of this encounter Plan of Treatment Not on file documented as of this encounter Visit Diagnoses Diagnosis Lumbago- Primary documented in this encounter Care Teams Cutter Grinder Operator Relationship Specialty Start Date End Date Rashawn Levine PA NO ADDRESS ON FILE PCP - General 04/09/08 documented as of this encounter
--- OUTSIDE RECORDS SUMMARY | 2025-10-07 03:52 | XMS_ITS | Encounter Summary ---
Author Organization [facility] Address [address] [place] [address] Care Team Providers Care Police And Fire Dispatcher Name Role Phone Rashawn Levine Primary Care Provider Unavail able Encounter Details Date Type Department Care Team (Latest Contact Info) Description 12/10/[address] 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
--- OUTSIDE RECORDS SUMMARY | 2025-10-07 03:52 | XMS_ITS | Encounter Summary ---
Author Organization [facility] Address [address] [place] [address] Care Team Providers Care Java Front End Web Developer Name Role Phone Rashawn Levine Primary Care Provider Unavail able Encounter Details Date Type Department Care Team (Latest Contact Info) Description 03/14/2004 Outpatient Historical [facility] Medicine[address] [address] Patrick Eastman MD [address] [place] [address] ACTINIC KERATOSIS (Primary Dx) Social History Tobacco Use Types Packs/Day Years Used Date Smoking Tobacco: Never Assessed Sex and Gender Information Value Date Recorded Sex Assigned at Not on file 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
--- OUTSIDE RECORDS SUMMARY | 2025-10-07 03:52 | XMS_ITS | Encounter Summary ---
Author Organization [facility] Address [address] [place] [address] Care Team Providers Care Manager Safe Name Role Phone Rashawn Levine Primary Care Provider Unavail able Encounter Details Date Type Department Care Team (Latest Contact Info) Description 11/03/2003 Outpatient Historical [facility] [address] [address] Patrick Eastman MD [address] [place] [address] ACUTE FRONTAL SINUSITIS (Primary Dx); OTALGIA NOS; HYPERTENSION NOS Social History Tobacco Use Types Packs/Day Years Used Date Smoking Tobacco: Never Assessed Sex and Gender Information Value Date Recorded Sex Assigned at Not on file 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
--- OUTSIDE RECORDS SUMMARY | 2025-10-07 03:52 | XMS_ITS | Encounter Summary ---
Author Organization [facility] Address [address] [place] [address] Care Team Providers Care Proced Tech Name Role Phone Rashawn Leivne Primary Care Provider Unavail able Encounter Details Date Type Department Care Team (Late st Contact Info) Description 10/15/2002 Outpatient Historical [facility] Family Medicine- [address] [address] Larry Dumont MD [address] [phone] Social History Tobacco Use Types Packs/Day Years Used Date Smoking Tobacco: Never Assessed Sex and Gender Information Value Date Recorded Sex Assigned at Not on file 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
--- OUTSIDE RECORDS SUMMARY | 2025-10-07 03:52 | XMS_ITS | Encounter Summary ---
Author Organization [facility] Address [address] [place] [address] Care Team Providers Care Recordist Chief Name Role Phone Rashawn Levine Primary Care Provider Unavail able Encounter Details Date Type Department Care Team (Latest Contact Info) Description 09/11/2002 Outpatient Historical [facility] Medicine- [address] [place] [address] Larry Dumont MD [address] [address] LUMBAGO (Primary Dx); HYPERTENSION NOS Social History Tobacco Use Types Packs/Day Years Used Date Smoking Tobacco: Never Assessed Sex and Gender Information Value Date Recorded Sex Assigned at Not on file 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
--- OUTSIDE RECORDS SUMMARY | 2025-10-07 03:52 | XMS_ITS | Encounter Summary ---
Author Organization [facility] Address [address] [place] [address] Care Team Providers Care Deputy Commonwealth'S Attorney Name Role Phone Rashawn Levine Primary Care Provider Unavail able Encounter Details Date Type Department Care Team (Latest Contact Info) Description 04/28/2003 Outpatient Historical [facility] Family Medicine- [address] [place] [address] Larry Dumont MD [address] [address] LUMBAGO (Primary Dx); JOINT PAIN-L/LEG Social History Tobacco Use Types Packs/Day Years Used Date Smoking Tobacco: Never Assessed Sex and Gender Information Value Date Recorded Sex Assigned at Not on file 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
--- OUTSIDE RECORDS SUMMARY | 2025-10-07 03:52 | XMS_ITS | Clinical Summary ---
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
--- OUTSIDE RECORDS SUMMARY | 2025-10-07 03:52 | XMS_ITS | Encounter Summary ---
Author Organization [facility] Address [address] [place] [address] Care Team Providers Care Smelting Engineer Name Role Phone Rashawn Levine Primary Care Provider Unavail able Encounter Details Date Type Department Care Team (Late st Contact Info) Description 12/10/2002 Outpatient Historical [facility] Family Medicine- [address] [address] Larry Dumont MD [address] [phone] Social History Tobacco Use Types Packs/Day Years Used Date Smoking Tobacco: Never Assessed Sex and Gender Information Value Date Recorded Sex Assigned at Not on file 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
--- OUTSIDE RECORDS SUMMARY | 2025-10-07 03:53 | XMS_ITS | Encounter Summary ---
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
--- OUTSIDE RECORDS SUMMARY | 2025-10-07 03:53 | XMS_ITS | Encounter Summary ---
Author Organization [facility] Address [address] [place] [address] Care Team Providers Care Scrap Iron Loader Name Role Phone Rashawn Levine Primary Care Provider Unavail able Encounter Details Date Type Department Care Team (Latest Contact Info) Description 04/10/2001 Outpatient Historical [facility] [address] [address] Patrick Eastman MD [address] [place] [address] Dysfunct eustachian tube (Primary Dx) Social History Tobacco Use Types Packs/Day Years Used Date Smoking Tobacco: Never Assessed Sex and Gender Information Value Date Recorded Sex Assigned at Not on file 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
--- OUTSIDE RECORDS SUMMARY | 2025-10-07 03:53 | XMS_ITS | Encounter Summary ---
Author Organization [facility] Address [address] [place] [address] Care Team Providers Care Abatement Worker Name Role Phone Rashawn Levine Primary Care Provider Unavail able Encounter Details Date Type Department Care Team (Latest Contact Info) Description 10/27/1999 Outpatient Historical [facility] Family Medicine- [address] [place] [address] Larry Dumont MD [address] [address] Routine medical exam (Primary Dx); Need for prophylactic vaccination with tetanus toxoid alone Social History Tobacco Use Types Packs/Day Years Used Date Smoking Tobacco: Never Assessed Sex and Gender Information Value Date Recorded Sex Assigned at Not on file 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
--- OUTSIDE RECORDS SUMMARY | 2025-10-07 03:53 | XMS_ITS | Encounter Summary ---
Author Organization [facility] Address [address] [place] [address] Care Team Providers Care Data Entry Email Processor Name Role Phone Rashawn Levine Primary Care Provider Unavail able Encounter Details Date Type Department Care Team (Latest Contact Info) Description 12/05/2000 Outpatient Historical [facility] Medicine- [id number] [place] [address] Larry Dumont MD [address] [address] Acute frontal sinusitis (Primary Dx) Social History Tobacco Use Types Packs/Day Years Used Date Smoking Tobacco: Never Assessed Sex and Gender Information Value Date Recorded Sex Assigned at Not on file 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
--- OUTSIDE RECORDS SUMMARY | 2025-10-07 03:53 | XMS_ITS | Encounter Summary ---
Author Organization [facility] Address [address] [place] [address] Care Team Providers Care Bicycle Rental Clerk Name Role Phone Rashawn Levine Primary Care Provider Unavail able Encounter Details Date Type Department Care Team (Latest Contact Info) Description 04/01/2002 Outpatient Historical [address] [address] Melany oRman MD 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
--- OUTSIDE RECORDS SUMMARY | 2025-10-07 03:53 | XMS_ITS | Encounter Summary ---
Author Organization [facility] Address [address] [place] [address] Care Team Providers Care Regional Guide Name Role Phone Rashawn Levine Primary Care Provider Unavail able Encounter Details Date Type Department Care Team (Latest Contact Info) Description 02/21/[address] 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
--- OUTSIDE RECORDS SUMMARY | 2025-10-07 03:53 | XMS_ITS | Encounter Summary ---
Author Organization [facility] Address [address] [place] [address] Care Team Providers Care Relationship Advisor Name Role Phone Rashawn Levine Primary Care Provider Unavail able Encounter Details Date Type Department Care Team (Latest Contact Info) Description 11/08/1999 Outpatient Historical [facility] Family Medicine- [id number] [place] [address] Larry Dumont MD [address] [address] Routine medical exam (Primary Dx) Social History Tobacco Use Types Packs/Day Years Used Date Smoking Tobacco: Never Assessed Sex and Gender Information Value Date Recorded Sex Assigned at Not on file 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
--- OUTSIDE RECORDS SUMMARY | 2025-10-07 03:53 | XMS_ITS | Encounter Summary ---
Author Organization [facility] Address [address] [place] [address] Care Team Providers Care Field Underwriter Name Role Phone Rashawn Levine Primary Care Provider Unavail able Encounter Details Date Type Department Care Team (Latest Contact Info) Description 03/15/2000 Outpatient Historical [address] [address] Patrick Eastman MD [address] [place] [address] Dysfunct eustachian tube (Primary Dx); Acute pharyngitis Social History Tobacco Use Types Packs/Day Years Used Date Smoking Tobacco: Never Assessed Sex and Gender Information Value Date Recorded Sex Assigned at Not on file 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
--- OUTSIDE RECORDS SUMMARY | 2025-10-07 03:53 | XMS_ITS | Encounter Summary ---
Author Organization [facility] Address [address] [place] [address] Care Team Providers Care Sporting Goods Sales Associate Name Role Phone Rashawn Levine Primary Care Provider Unavail able Encounter Details Date Type Department Care Team (Latest Contact Info) Description 01/16/2002 Outpatient Historical [facility] Family Medicine- [address] [place] [address] Larry Dumont MD [address] [address] HYPERTENSION NOS (Primary Dx) Social History Tobacco Use Types Packs/Day Years Used Date Smoking Tobacco: Never Assessed Sex and Gender Information Value Date Recorded Sex Assigned at Not on file 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
--- OUTSIDE RECORDS SUMMARY | 2025-10-07 03:53 | XMS_ITS | Encounter Summary ---
Author Organization [facility] Address [address] [place] [address] Care Team Providers Care Rug Inspector Helper Name Role Phone Rashawn Levine Primary Care Provider Unavail able Encounter Details Date Type Department Care Team (Latest Contact Info) Description 03/04/2001 Outpatient Historical [facility] Family Medicine- [address] [place] [address] Larry Dumont MD [address] [address] Unspecified essential hypertension (Primary Dx) Social History Tobacco Use Types Packs/Day Years Used Date Smoking Tobacco: Never Assessed Sex and Gender Information Value Date Recorded Sex Assigned at Not on file 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
--- OUTSIDE RECORDS SUMMARY | 2025-10-07 03:53 | XMS_ITS | Encounter Summary ---
Author Organization [facility] Address [address] [place] [address] Care Team Providers Care Electrician Machine Shop Name Role Phone Rashawn Levine Primary Care Provider Unavail able Encounter Details Date Type Department Care Team (Latest Contact Info) Description 02/04/2001 Outpatient Historical [facility] Medicine- [address] [address] Yovani Kay MD [address] [place] [id number] Elevated blood pressure reading without diagnosis of hypertension (Primary Dx) Social History Tobacco Use Types Packs/Day Years Used Date Smoking Tobacco: Never Assessed Sex and Gender Information Value Date Recorded Sex Assigned at Not on file 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
--- OUTSIDE RECORDS SUMMARY | 2025-10-07 03:53 | XMS_ITS | Encounter Summary ---
Author Organization [facility] Address [address] [place] [address] Care Team Providers Care Director Of Premium Seat Sales Name Role Phone Rashawn Levine Primary Care Provider Unavail able Encounter Details Date Type Department Care Team (Latest Contact Info) Description 06/13/2002 Outpatient Historical [facility] Medicine- [id number] [place] [address] Larry Dumont MD [address] [address] HYPERTENSION NOS (Primary Dx); DIZZINESS AND GIDDINESS Social History Tobacco Use Types Packs/Day Years Used Date Smoking Tobacco: Never Assessed Sex and Gender Information Value Date Recorded Sex Assigned at Not on file 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
--- OUTSIDE RECORDS SUMMARY | 2025-10-07 03:53 | XMS_ITS | Encounter Summary ---
Author Organization [facility] Address [address] [place] [address] Care Team Providers Care Hand Shaker Name Role Phone Rashawn Levine Primary Care Provider Unavail able Encounter Details Date Type Department Care Team (Latest Contact Info) Description 07/12/2001 Outpatient Historical [facility] Medicine- [id number] [place] [address] Larry Dumont MD [address] [address] Neoplasm of unspecified nature of bone, soft tissue, and skin (Primary Dx) Social History Tobacco Use Types Packs/Day Years Used Date Smoking Tobacco: Never Assessed Sex and Gender Information Value Date Recorded Sex Assigned at Not on file 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
--- NOTE | 2025-10-07 03:54 | ED_ITS ---
HPI - Allergic Reaction General: Chief complaint: Allergic Reaction Stated complaint: allergic rxn Time Seen by Provider: 10/07/25 03:47 History of Present Illness: HPI narrative: 80-year-old man with a history of alpha gal who presents to the emergency room after having an allergic reaction to some plant based beef jerky he ate last night. He took 2 epi and some Benadryl at home. He seems to be improved. He says his symptoms were tingling in his legs and some difficulty breathing. Related Data Home Medications ?Medication ?Instructions ?Recorded ?Confirmed multivitamin 1 tab PO DAILY 09/28/2107/31 Previous Rx's ?Medication ?Instructions ?Recorded Custom Molded Orthotics #1 ea 10/26/21 epinephrine 0.3 mg/0.3 mL 0.3 mg (0.3 mL) IM Q10M PRN 01/06/25 injection, auto-injector (EpiPen) anaphylaxis #1 ea sildenafil 50 mg tablet (Viagra) 50 mg PO DAILY PRN se xual activity 01/06/25 #20 tabs finasteride 5 mg tablet 5 mg PO DAILY #30 tabs 08/17 losartan 100 mg tablet 100 mg PO DAILY #90 tabs amlodipine 2.5 mg tablet 2.5 mg PO DAILY #90 tabs dexamethasone 6 mg tablet 6 mg PO DAILY 5 days #5 tabs 10/07/25 Allergies Allergy/AdvReac Type Severity Reaction Status Date / Time doxycycline Allergy Mild ALGY-Rash Verified 08/27/25 14:50 Alpha gal Allergy Severe Unresponsiv Uncoded 08/27/25 14:43 e Review of Systems Narrative: Constitutional symptoms: Negative except as documented in HPI. Skin symptoms: Negative except as documented in HPI. Eye symptoms: Negative except as documented in HPI. ENMT symptoms: Negative except as documented in HPI. Respiratory symptoms: Negative except as documented in HPI. Cardiovascular symptoms: Negative except as documented in HPI. Gastrointestinal symptoms: Negative except as documented in HPI. Genitourinary symptoms: Negative except as documented in HPI. Musculoskeletal symptoms: Negative except as documented in HPI. Neurologic symptoms: Negative except as documented in HPI. Psychiatric symptoms: Negative except as documented in HPI. Endocrine symptoms: Negative except as documented in HPI. PFS ED PFSH: Medical History (Updated 10/07/25 @ 04:41 by Deann Munoz MD) Seborrheic keratoses Alpha-gal syndrome Chronic back pain Essential hypertension Spinal stenosis AAA (abdominal aortic aneurysm) Benavides's neuroma Peripheral neuropathy Peyronie disease HTN (hypertension) Urinary retention Surgical History Hx of vasectomy Family History Father , at age 92 Stroke Hypertension Mother , AT AGE 95 COLON CANCER Hypertension Cancer Other CAD (coronary artery disease) Social History Smoking and tobacco/nicotine status: former use of tobacco/nicotine Alcohol intake: current Alcohol intake frequency: few times a month Marital status: Current occupational status: retired Physical Exam Narrative: EXAM NARRATIVE: General: Alert, no acute distress. Skin: Warm, dry. Head: Normocephalic, atraumatic. Neck: Supple, trachea midline. Eye: Extraocular movements are intact. Ears, nose, mouth and throat: mucosa moist. Cardiovascular: Regular, Normal peripheral perfusion. Respiratory: Lungs are clear to auscultation, respirations are non-labored, breath sounds are equal, Symmetrical chest wall expansion. Gastrointestinal: Soft, Nontender, Non distended Musculoskeletal: Normal ROM, no deformity. Neurological: Alert and oriented, No focal neurological deficit observed. Psychiatric: Cooperative, appropriate mood & affect. Course Vital Signs: Vital signs: Vital Signs Temperature 98.1 F 10/07/25 03:47 Pulse Rate 84 10/07/25 03:47 Respiratory Rate 18 10/07/25 03:47 Blood Pressure 142/69 10/07/25 03:47 Pulse Oximetry 99 10/07/25 03:47 Oxygen Delivery Me thod Room Air 10/07/25 03:47 MDM - Allergic Reaction Medical Decision Making Patient's reason for coming to the emergency room: Allergic reaction. Alpha gal Social determinants: Patient is retired I reviewed the patient's medical record. Patient was seen almost a month ago by his PCP for knee pain. I also saw him around 20 days ago for a similar allergic reaction. I reviewed the patient's current home meds Patient has an EpiPen at home. Takes amlodipine for hypertension as well as losartan Alternate historians: None Differential diagnosis including but not limited to and based on the above HPI, review of systems and physical exam: In a patient with complaints of allergic reaction have concern for anaphylaxis, medication reactions and viral reactions. Orders placed to evaluate differential diagnosis based on the above differential, HPI and physical exam Reexamination: Patient has remained stable. No oxygen requirements. No chest pain. No altered mental status. Assessment and plan: Allergic reaction ?Solu-Medrol - Discharged home - Discussed plan with patient. Answered any questions. - Evaluation and treatment of this problem were appropriate in the emergency setting. No radiology studies performed this visit Discharge Plan Discharge Patient Disposition: Home Clinical Impression: Allergic reaction Condition: Stable Prescriptions: New dexamethasone 6 mg tablet 6 mg PO DAILY 5 Days Qty: 5 0RF No Action multivitamin Tablet 1 tab PO DAILY (DME) Custom Molded Orthotics See Rx Instructions .Route .MEDSUPPLY Qty: 1 0RF Rx Instructions: As directed epinephrine [EpiPen] 0.3 mg/0.3 mL auto-injector 0.3 mg IM Q10M PRN (Reason: anaphylaxis) Qty: 1 0RF Rx Instructions: for 2 doses sildenafil [Viagra] 50 mg tablet 50 mg PO DAILY PRN (Reason: sexual activity) Qty: 20 0RF Rx Instructions: administer 30 minutes to 4 hours before activity finasteride 5 mg tablet 5 mg PO DAILY Qty: 30 3RF losartan 100 mg tablet 100 mg PO DAILY Qty: 90 0RF amlodipine 2.5 mg tablet 2.5 mg PO DAILY Qty: 90 0RF Discharge Orders: Discharge ED (Routine); Ordered 10/07/25 Ordered By: Deann Munoz Referrals: Guillermo Baez MD [Primary Care Provider, Family Practice] Discharge Diet: Usual diet Discharge Activity: Increase activity as tolerated Patient Instructions: Allergies (ED), Opioid Safety, Pain Management, Patient Portal & Vita Instructions Activity Restrictions/Additional Instructions: Thank you for choosing [facility] for your healthcare needs today. You have been screened and evaluated and felt safe for discharge. Health conditions do change or evolve sometimes and as such it is important that you follow up with your Primary Doctor to be re checked, 3-5 days is a general good time frame for follow up. You are always welcome to return to the ED for re assessment if your symptoms are worsening or you have new concerns Print Language: Cambodian Coding Level of Care Code ED Teamcenter Consultant for Elvis Mclean
[2025-10-07] MEDS: methylPREDNISolone sod succ 125 mg/2 mL INJ IVP (04:00)
[2025-10-07 04:50] VITALS: BP 142/69; PULSE 82; RESP 16; O2SAT 92
== END 2025-10-07 04:59 | disposition home or self-care (01) ==
PROVIDERS: Emergency Provider Emergency Medicine; PCP Family Medicine
DX: T78.19XA Other adverse food reactions, not elsewhere classified, initial encounter (principal); Z91.014 Allergy to mammalian meats; X58.XXXA Exposure to other specified factors, initial encounter; Z87.891 Personal history of nicotine dependence; I10 Essential (primary) hypertension
CPT/HCPCS: 36415; 96374; 99284; J2919

== ENCOUNTER 2025-10-08 04:15 | Emergency (ER) | payer MEDICARE, SELFPAY ==
[2025-10-08 04:18] VITALS: BP 142/75; PULSE 107; RESP 18; TEMP 36.3; O2SAT 96; BMI 26.5
--- OUTSIDE RECORDS SUMMARY | 2025-10-08 04:27 | XMS_ITS | Encounter Summary ---
Author Organization [facility] Address [address] [place] [address] Care Team Providers Care Commercial Escrow Assistant Name Role Phone Rashawn Levine Primary Care Provider Unavail able Encounter Details Date Type Department Care Team (Latest Contact Info) Description 02/16/2004 Outpatient Historical [facility] Medicine- [address] [address] Patrick Eastman MD [address] [place] [address] SKIN DISORDER NOS (Primary Dx); HYPERTENSION NOS; ACTINIC KERATOSIS Social History Tobacco Use Types Packs/Day Years Used Date Smoking Tobacco: Never Assessed Sex and Gender Information Value Date Recorded Sex Assigned at Not on file 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
--- OUTSIDE RECORDS SUMMARY | 2025-10-08 04:27 | XMS_ITS ---
Author Organization Unknown Vital Signs BpStanding BpSitting BpSupine Date Temperature HeartRate Weight Hei ght Spo2 Respiration Bmi HeadCircumference FieldCount TimeRecorded NeckCircumferen ce WaistCircumference Pulse Custom 150/92 10/08 00:00 :00 198,0.0 0 5,11 98 20 27.6 00:00 86 146/78 03/11 00:00 :00 98.2 194,0.0 0 5,11 98 16 27.1 00:00 86 150/82 12/15 00:00 :00 97.7 206,0.0 0 5,11 98 28.7 00:00 78
--- OUTSIDE RECORDS SUMMARY | 2025-10-08 04:27 | XMS_ITS | Encounter Summary ---
Author Organization [facility] Address [address] [place] [address] Care Team Providers Care Tractor Mechanic Helper Name Role Phone Rashawn Levine Primary Care Provider Unavail able Encounter Details Date Type Department Care Team (Latest Contact Info) Description 03/14/2004 Outpatient Historical [facility] [address] [address] Patrick Eastman MD [address] [place] [address] ACTINIC KERATOSIS (Primary Dx) Social History Tobacco Use Types Packs/Day Years Used Date Smoking Tobacco: Never Assessed Sex and Gender Information Value Date Recorded Sex Assigned at Not on file 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
--- OUTSIDE RECORDS SUMMARY | 2025-10-08 04:27 | XMS_ITS | Clinical Summary ---
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
--- OUTSIDE RECORDS SUMMARY | 2025-10-08 04:27 | XMS_ITS | Encounter Summary ---
Author Organization [facility] Address [address] [place] [address] Care Team Providers Care Cloth Tester Quality Name Role Phone Rashawn Levine Primary Care Provider Unavail able Encounter Details Date Type Department Care Team (Latest Contact Info) Description 06/13/2004 Outpatient Historical [facility] Medicine- [address] [address] Alize Yi MD [address] [place] [address] HYPERTENSION NOS (Primary Dx) Social History Tobacco Use Types Packs/Day Years Used Date Smoking Tobacco: Never Assessed Sex and Gender Information Value Date Recorded Sex Assigned at Not on file 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
--- OUTSIDE RECORDS SUMMARY | 2025-10-08 04:28 | XMS_ITS | Encounter Summary ---
Author Organization [facility] Address [address] [place] [address] Care Team Providers Care Buckle Attacher Name Role Phone Rashawn Levine Primary Care Provider Unavail able Encounter Details Date Type Department Care Team (Latest Contact Info) Description 04/01/2002 Outpatient Historical [address] [address] Melany Roman MD 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
--- OUTSIDE RECORDS SUMMARY | 2025-10-08 04:28 | XMS_ITS | Encounter Summary ---
Author Organization [facility] Address [address] [place] [address] Care Team Providers Care Professor Of Nursing Name Role Phone Rashawn Levine Primary Care Provider Unavail able Encounter Details Date Type Department Care Team (Latest Contact Info) Description 11/08/1999 Outpatient Historical [facility] Family Medicine- [address] [place] [address] Larry Dumont MD [address] [address] Routine medical exam (Primary Dx) Social History Tobacco Use Types Packs/Day Years Used Date Smoking Tobacco: Never Assessed Sex and Gender Information Value Date Recorded Sex Assigned at Not on file 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
--- OUTSIDE RECORDS SUMMARY | 2025-10-08 04:28 | XMS_ITS | Encounter Summary ---
Author Organization [facility] Address [address] [place] [address] Care Team Providers Care Sales And Marketing Executive Name Role Phone Rashawn Levine Primary Care Provider Unavail able Encounter Details Date Type Department Care Team (Latest Contact Info) Description 10/14/2002 Outpatient Historical [facility] Medicine- [id number] [place] [address] Larry Dumont MD [address] [address] HYPERTENSION NOS (Primary Dx); SCREENING MAL NEOP-PROSTATE Social History Tobacco Use Types Packs/Day Years Used Date Smoking Tobacco: Never Assessed Sex and Gender Information Value Date Recorded Sex Assigned at Not on file 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
--- OUTSIDE RECORDS SUMMARY | 2025-10-08 04:28 | XMS_ITS | Encounter Summary ---
Author Organization [facility] Address [address] [place] [address] Care Team Providers Care Cutter Hot Knife Name Role Phone Rashawn Levine Primary Care Provider Unavail able Encounter Details Date Type Department Care Team (Latest Contact Info) Description 10/28/2003 Outpatient Historical [facility] Medicine- [address] [place] [address] Larry Dumont MD [address] [address] LUMBAGO (Primary Dx) Social History Tobacco Use Types Packs/Day Years Used Date Smoking Tobacco: Never Assessed Sex and Gender Information Value Date Recorded Sex Assigned at Not on file 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
--- OUTSIDE RECORDS SUMMARY | 2025-10-08 04:28 | XMS_ITS | Encounter Summary ---
Author Organization [facility] Address [address] [place] [address] Care Team Providers Care Graduate Student Instructor Name Role Phone Rashawn Levine Primary Care Provider Unavail able Encounter Details Date Type Department Care Team (Latest Contact Info) Description 12/05/2000 Outpatient Historical [facility] Medicine- [id number] [place] [address] Larry Dumont MD [address] [address] Acute frontal sinusitis (Primary Dx) Social History Tobacco Use Types Packs/Day Years Used Date Smoking Tobacco: Never Assessed Sex and Gender Information Value Date Recorded Sex Assigned at Not on file Legal Sex Male 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
--- OUTSIDE RECORDS SUMMARY | 2025-10-08 04:28 | XMS_ITS | Encounter Summary ---
Author Organization [facility] Address [address] [place] [address] Care Team Providers Care Field Crop Farm Worker Name Role Phone Rashawn Levine Primary Care Provider Unavail able Encounter Details Date Type Department Care Team (Late st Contact Info) Description 10/15/2002 Outpatient Historical [facility] Family Medicine- [address] [address] Larry Dumont MD [address] [phone] Social History Tobacco Use Types Packs/Day Years Used Date Smoking Tobacco: Never Assessed Sex and Gender Information Value Date Recorded Sex Assigned at Not on file Legal Sex Male 4:40 AM CLINICAL LAB SPECIALIST Gender Identity Not on file Sexual Orientation Not on file documented as of this encounter Plan of Treatment Not on file documented as of this encounter Visit Diagnoses Not on filedocumented in this encounter Care Teams Field Crop Farm Worker Relationship Specialty Start Date End Date Rashawn Levine PA NO ADDRESS ON FILE PCP - General 04/09/08 documented as of this encounter
--- OUTSIDE RECORDS SUMMARY | 2025-10-08 04:28 | XMS_ITS | Encounter Summary ---
Author Organization [facility] Address [address] [place] [address] Care Team Providers Care Power System Dispatcher Name Role Phone Rashawn Levine Primary Care Provider Unavail able Encounter Details Date Type Department Care Team (Latest Contact Info) Description 12/10/2002 Outpatient Historical [facility] Medicine- [address] [place] [address] Larry Dumont MD [address] [address] HYPERTENSION NOS (Primary Dx) Social History Tobacco Use Types Packs/Day Years Used Date Smoking Tobacco: Never Assessed Sex and Gender Information Value Date Recorded Sex Assigned at Not on file 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
--- OUTSIDE RECORDS SUMMARY | 2025-10-08 04:28 | XMS_ITS | Encounter Summary ---
Author Organization [facility] Address [address] [place] [address] Care Team Providers Care Milk Condenser Name Role Phone Rashawn Levine Primary Care Provider Unavail able Encounter Details Date Type Department Care Team (Latest Contact Info) Description 04/10/2001 Outpatient Historical [facility] Medicine[address] [address] Patrick Eastman MD [address] [place] [address] Dysfunct eustachian tube (Primary Dx) Social History Tobacco Use Types Packs/Day Years Used Date Smoking Tobacco: Never Assessed Sex and Gender Information Value Date Recorded Sex Assigned at Not on file 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
--- OUTSIDE RECORDS SUMMARY | 2025-10-08 04:28 | XMS_ITS | Encounter Summary ---
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
--- OUTSIDE RECORDS SUMMARY | 2025-10-08 04:28 | XMS_ITS | Data Portability ---
Author Organization [facility] Scottie Leon [facility] Address [address] [address] Assessment Encounter Date Assessment Date Assessment LastModified [...] serum or plasma 2023 024 ADINA [facility], [address] [facility] [address], [address], 5 14:51:07 TSH, serum or plasma 2022 023 [facility] ([facility]), [address] [place], [address], 3 11:55:10 PSA, serum or plasma 2022 023 [facility], [address] [place] [address], [address] [place], [address], 3 06:19:29 Referral urologist referral 2022 023 Not available 3 16:24:01 Procedures cerumen removal using irrigation (PROC) 2023 024 [email or web address] 2 [facility], [address] [facility], [facility] 1, [place], [address], 4 10:55:11 Surgeries None recorded. Imaging XR, knee, 3 view 2023 024 ADINA Not available 4 17:00:41 Medication Orders EpiPen 2-Willis 0.3 mg/0.3 mL injection, auto-inject or [address] [facility], [address] [facility] [address], [place], [place], [id number], 5 12:34:05 losartan 100 mg tablet [address] [facility], [address] [facility] [address], [place], [place], [id number], 4 11:41:14 amlodipine 2.5 mg tablet [address] [facility], [address] [facility] 4, [place], [place], [id number], 4 11:41:15 Patient TargetsNo targets recorded. Patient Instructions Encounter Date Encounter Id Patient Instructions Last Modified By Organization Details Last Modified Time 12/26/2023 [id number] ears cleaned ernesto e sure no broken bone in knee; much better [email or web address] Not available 12/26/2023 11:01:17 10/08/2024 [id number] advance care planning: care instructions Not available [...] 6.9 x10 4.5-10 .5 Not Available [facility] [address], [place], [address], 06/18/2023 12:01:41 06/18/20 23 06/18/2023 CBC RBC 4.55 x10 4.30-5 .90 Not Available [facility] [address], [place], [address], 06/18/2023 12:01:41 06/18/20 23 06/18/2023 CBC HGB 15.2 g/dL 13.5-1 8.0 Not Available [facility] [address] [facility] 1, [place], [address], 06/18/2023 12:01:41 06/18/20 23 06/18/2023 CBC HCT 43.7 % 35.0-6 0.0 Not Available [facility] [address], [place], [address], 06/18/2023 12:01:41 06/18/20 23 06/18/2023 CBC MCV 96.1 fL 80.0-9 9.9 Not Available [facility] [address], [place], [address], 06/18/2023 12:01:41 06/18/20 23 06/18/2023 CBC MCH 33.4 pg 27.0-3 2.0 high Not Available [facility] [address] [facility] 1, [place], [address], 06/18/2023 12:01:41 06/18/20 23 06/18/2023 CBC MCHC 34.7 g/dL 32.0-3 6.0 Not Available [facility] [address] [facility] 1, [place], [address], 06/18/2023 12:01:41 06/18/20 23 06/18/2023 CBC RDW 12.9 % 11.5-1 4.5 Not Available [facility] [address] [facility], [place], [address], 06/18/2023 12:01:41 06/18/20 23 06/18/2023 CBC plt 202.8 x10 150.0- 451.0 Not Available [facility] [address] [facility] 1, [place], [address], 06/18/2023 12:01:41 06/18/20 23 06/18/2023 CBC lymphocytes % 23.9 % 20.0-5 0.0 Not Available [facility] [address] [facility], [place], [address], 06/18/2023 12:01:41 06/18/20 23 06/18/2023 CBC granulcytes % 60.8 % 30.0-7 0.0 Not Available [facility] [address] [facility] Leigh Ann [facility] 1, [place], [address], 06/18/2023 12:01:41 06/18/20 23 06/18/2023 CBC monocytes % 7.9 % 2.0-10 .0 Not Available [facility] [address] [facility] [address] [address], [place], [address], 06/18/2023 12:01:41 06/18/20 23 06/18/2023 CBC granulcytes# 4.2 x10 Not Nika ilable [facility] [address] [facility], [place], [address], 06/18/2023 12:01:41 06/18/20 23 06/18/2023 CBC lymphocytes # 1.7 x10 Not Available [facility] [address] [address], [place], [address], 06/18/2023 12:01:41 06/18/20 23 06/18/2023 CBC monocytes # 0.5 x10 Not Avai lable [facility] [address] [address], [place], [address], 06/18/2023 12:01:41 06/18/20 23 06/18/2023 CMP (MALE ) glucose 99.0 mg/dL 60.0-9 9.0 Not Available [facility] [address] [address], [place], [address], 06/18/2023 13:01:11 06/18/20 23 06/18/2023 CMP (MALE ) BUN (blood urea nitrogen) 13.0 mg/dL 10.0-2 6.0 Not Available [facility] [address] [address], [place], [address], 06/18/2023 13:01:11 06/18/20 23 06/18/2023 CMP (MALE ) creatinine (serum) 0.8 mg/dL 0.4-1. 5 Not Available [facility] [address] [facility] [address] [address], [place], [address], 06/18/2023 13:01:11 06/18/20 23 06/18/2023 CMP (MALE ) BUN/creatini ne ratio 16.25 ratio Not Available [facility] [address] [facility] 1, [place], [address], 06/18/2023 13:01:11 06/18/20 23 06/18/2023 CMP (MALE ) eGFR calculated 99.6 Not Available [facility] [address] [facility], [place], [address], 06/18/2023 13:01:11 06/18/20 23 06/18/2023 CMP (MALE ) total protein 7.1 g/dL 6.0-8. 5 Not Available [facility] [address] [facility], [place], [address], 06/18/2023 13:01:11 06/18/20 23 06/18/2023 CMP (MALE ) total bilirubin 0.7 mg/dL 0.2-1. 3 Not Available [facility] [address] [facility], [place], [address], 06/18/2023 13:01:11 06/18/20 23 06/18/2023 CMP (MALE ) albumin 4.1 g/dL 3.5-5. 5 Not Available [facility] [address] [facility], [place], [address], 06/18/2023 13:01:11 06/18/20 23 06/18/2023 CMP (MALE ) globulin 3.0 calc Not Available [facility] [address] [facility], [place], [address], 06/18/2023 13:01:11 06/18/20 23 06/18/2023 CMP (MALE ) AST (SGOT) 24.0 U/L 0.0-46 .0 Not Available [facility] [address] [facility], [place], [address], 06/18/2023 13:01:11 06/18/20 23 06/18/2023 CMP (MALE ) altv (SGPT) 35.0 U/L 13.0-6 9.0 normal Not Available [facility] [address] [facility], [place], [address], 06/18/2023 13:01:11 06/18/20 23 06/18/2023 CMP (MALE ) A/G ratio 1.4 ratio Not Available [facility] [address] [facility] [address], [place], [address], 06/18/2023 13:01:11 06/18/20 23 06/18/2023 CMP (MALE ) ALP phos 78.0 U/L 30.0-1 40.0 normal Not Available [facility] [address] [facility] [address], [place], [address], 06/18/2023 13:01:11 06/18/20 23 06/18/2023 CMP (MALE ) calcium 9.2 mg/dL 8.4-10 .5 Not Available [facility] [address] [facility] [address], [place], [address], 06/18/2023 13:01:11 06/18/20 23 06/18/2023 CMP (MALE ) sodium 141.0 mmol/ L 136.0- 145.0 Not Available [facility] [address] [facility] 1, [place], [address], 06/18/2023 13:01:11 06/18/20 23 06/18/2023 CMP (MALE ) potassium 4.4 mmol/ L 3.5-5. 1 Not Available [facility] [address] [facility] 1, [place], [address], 06/18/2023 13:01:11 06/18/20 23 06/18/2023 CMP (MALE ) chloride 107.0 mmol/ L 98.0-1 10.0 normal Not Available [facility] [address] Kellere [facility] 1, [place], [address], 06/18/2023 13:01:11 06/18/20 23 06/18/2023 CMP (MALE ) C02 24.0 mmol/ L 22.0-3 1.0 Not Available [facility] [address] [facility] 1, [place], [address], 06/18/2023 13:01:11 06/18/20 23 06/18/2023 CMP (MALE ) anion gap 10.0 calc Not Available [facility] [address] [facility] 1, [place], [address], 06/18/2023 13:01:11 06/18/20 23 06/18/2023 CMP (MALE ) osmolality 291.3 calc Not Available [facility] [address] [facility] 1, [place], [address], 06/18/2023 13:01:11 06/18/20 23 06/18/2023 LIPID PROFI LE (MALE ) cholesterol 189.0 mg/dL 0.0-20 0.0 Not Available [facility] [address] [facility] 1, [place], [address], 06/18/2023 13:01:16 06/18/20 23 06/18/2023 LIPID PROFI LE (MALE ) trig 98.0 mg/dL 0.0-15 0.0 Not Available [facility] [address] [facility] 1, [place], [address], 06/18/2023 13:01:16 06/18/20 23 06/18/2023 LIPID PROFI LE (MALE ) HDL - direct 43.0 mg/dL >40.0 Not Available [facility] [address] [facility] 1, [place], [address], 06/18/2023 13:01:16 06/18/20 23 06/18/2023 LIPID PROFI LE (MALE ) VLDL - direct 19.6 mg/dL Not Available [facility] [address] [facility] 1, [place], [address], 06/18/2023 13:01:16 06/18/20 23 06/18/2023 LIPID PROFI LE (MALE ) LDL - direct 126.4 mg/dL 0.0-13 0.0 Not Available [facility] [address] [facility] 1, [place], [address], 06/18/2023 13:01:16 06/18/20 23 06/19/2023 PSA, TOTAL [...] This test was perfo rmed using the BYOM!e ns chemi lumin escen t metho d. Value s obtai coni from diffe rent assay metho ds canno t be used inter john easan jose . PSA level s, regar dless of value , shoul d not be inter prete d as absol agdaagux evide nce of the prese nce or absen ce of disea se. Not Available [employer] [facility] [address] , [place], [address], 06/19/2023 06:19:29 06/18/2006/18/2023 TSH, serum or plasm a TSH 0.42 uIU/m L 0.49-3 .82 Not Available [facility] ([facility]) [address] [place], [address], 06/18/2023 10:16:27 12/18/20 24 10/15/2024 CBC WBC 7.2 x10 4.5-10 .5 Not Available [facility] [address], [place], [address], 10/15/2024 09:31:51 10/15/20 24 10/15/2024 CBC RBC 4.76 x10 4.30-5 .90 Not Available [facility] [address], [place], [address], 10/15/2024 09:31:51 10/15/20 24 10/15/2024 CBC HGB 15.2 g/dL 13.5-1 8.0 Not Available [facility] [address], [place], [address], 10/15/2024 09:31:51 10/15/20 24 10/15/2024 CBC HCT 44.3 % 35.0-6 0.0 Not Available [facility] [address], [place], [address], 10/15/2024 09:31:51 10/15/20 24 10/15/2024 CBC MCV 93.1 fL 80.0-9 9.9 Not Available [facility] [address], [place], [address], 10/15/2024 09:31:51 10/15/20 24 10/15/2024 CBC MCH 31.9 pg 27.0-3 2.0 Not Available [facility] [address], [place], [address], 10/15/2024 09:31:51 10/15/20 24 10/15/2024 CBC MCHC 34.3 g/dL 32.0-3 6.0 Not Available [facility] [address], [place], [address], 10/15/2024 09:31:51 10/15/20 24 10/15/2024 CBC RDW 13.1 % 11.5-1 4.5 Not Available [facility] [address] [facility] 1, [place], [address], 10/15/2024 09:31:51 10/15/20 24 10/15/2024 CBC plt 197.5 x10 150.0- 451.0 Not Available [facility] [address] [facility] 1, [place], [address], 10/15/2024 09:31:51 10/15/20 24 10/15/2024 CBC lymphocytes % 23.8 % 20.0-5 0.0 Not Available [facility] [address] Leigh Ann [facility] 1, [place], [address], 10/15/2024 09:31:51 10/15/20 24 10/15/2024 CBC granulcytes % 63.1 % 30.0-7 0.0 Not Available [facility] [address] Leigh Ann [facility] 1, [place], [address], 10/15/2024 09:31:51 10/15/20 24 10/15/2024 CBC monocytes % 9.2 % 2.0-16 .0 Not Available [facility] [address] Leigh Ann [facility] 1, [place], [address], 10/15/2024 09:31:51 10/15/20 24 10/15/2024 CBC granulcytes# 4.6 x10 Not Nika ilable [facility] [address] [facility] 1, [place], [address], 10/15/2024 09:31:51 10/15/20 24 10/15/2024 CBC lymphocytes # 1.7 x10 Not Available [facility] [address] [facility], [place], [address], 10/15/2024 09:31:51 10/15/20 24 10/15/2024 CBC monocytes # 0.7 x10 Not [facility] [address] [facility] [address], [place], [address], 10/15/2024 09:31:51 10/15/20 24 10/15/2024 CMP (MALE ) glucose 108.0 mg/dL 60.0-9 9.0 high Not Available [facility] [address] [facility] [address], [place], [address], 10/15/2024 10:01:42 10/15/20 24 10/15/2024 CMP (MALE ) BUN (blood urea nitrogen) 17.0 mg/dL 10.0-2 6.0 Not Available [facility] [address] [address], [place], [address], 10/15/2024 10:01:42 10/15/20 24 10/15/2024 CMP (MALE ) creatinine (serum) 0.8 mg/dL 0.4-1. 5 Not Available [facility] [address] [address], [place], [address], 10/15/2024 10:01:42 10/15/20 24 10/15/2024 CMP (MALE ) BUN/creatini ne ratio 21.25 ratio Not Available [facility] [address] [address], [place], [address], 10/15/2024 10:01:42 10/15/20 24 10/15/2024 CMP (MALE ) eGFR calculated 99.1 Not Available [facility] [address] [facility] 1, [place], [address], 10/15/2024 10:01:42 10/15/20 24 10/15/2024 CMP (MALE ) total protein 7.4 g/dL 6.0-8. 5 Not Available [facility] [address] [facility] [address], [place], [address], 10/15/2024 10:01:42 10/15/20 24 10/15/2024 CMP (MALE ) total bilirubin 0.6 mg/dL 0.2-1. 3 Not Available [facility] [address] [facility] [address], [place], [address], 10/15/2024 10:01:42 10/15/20 24 10/15/2024 CMP (MALE ) albumin 4.0 g/dL 3.5-5. 5 Not Available [facility] [address] [facility] [address], [place], [address], 10/15/2024 10:01:42 10/15/20 24 10/15/2024 CMP (MALE ) globulin 3.4 calc Not Available Roshan [facility] [address] [facility] [address], [place], [address], 10/15/2024 10:01:42 10/15/20 24 10/15/2024 CMP (MALE ) AST (SGOT) 27.0 U/L 0.0-46 .0 Not Available [facility] [address] [facility] [address], [place], [address], 10/15/2024 10:01:42 10/15/20 24 10/15/2024 CMP (MALE ) altv (SGPT) 33.0 U/L 13.0-6 9.0 normal Not Available [facility] [address] [facility] [address], [place], [address], 10/15/2024 10:01:42 10/15/20 24 10/15/2024 CMP (MALE ) A/G ratio 1.2 ratio Not Available [facility] [address] [facility] [address], [place], [address], 10/15/2024 10:01:42 10/15/20 24 10/15/2024 CMP (MALE ) ALP phos 94.0 U/L 30.0-1 40.0 normal Not Available [facility] [address] [facility] 1, [place], [address], 10/15/2024 10:01:42 10/15/20 24 10/15/2024 CMP (MALE ) calcium 9.5 mg/dL 8.4-10 .5 Not Available [facility] [address] [facility] 1, [place], [address], 10/15/2024 10:01:42 10/15/20 24 10/15/2024 CMP (MALE ) sodium 138.0 mmol/ L 136.0- 145.0 Not Available [facility] [address] [facility] [address], [place], [address], 10/15/2024 10:01:42 10/15/20 24 10/15/2024 CMP (MALE ) potassium 4.2 mmol/ L 3.5-5. 1 Not Available [facility] [address] [facility] [address], [place], [address], 10/15/2024 10:01:42 10/15/20 24 10/15/2024 CMP (MALE ) chloride 108.0 mmol/ L 98.0-1 10.0 normal Not Available [facility] [address] [facility] [address], [place], [address], 10/15/2024 10:01:42 10/15/20 24 10/15/2024 CMP (MALE ) C02 25.0 mmol/ L 22.0-3 1.0 Not Available [facility] [address] [facility] [address], [place], [address], 10/15/2024 10:01:42 10/15/20 24 10/15/2024 CMP (MALE ) anion gap 5.0 calc Not Available [facility] [address] [facility] 1, [place], [address], 10/15/2024 10:01:42 10/15/20 24 10/15/2024 CMP (MALE ) osmolality 287.1 calc Not Available [facility] [address] [facility] 1, [place], [address], 10/15/2024 10:01:42 10/15/20 24 10/15/2024 LIPID PROFI LE (MALE ) cholesterol 194.0 mg/dL 0.0-20 0.0 Not Available [facility] [address] [facility] 1, [place], [address], 10/15/2024 11:56:44 10/15/20 24 10/15/2024 LIPID PROFI LE (MALE ) trig 122.0 mg/dL 0.0-15 0.0 Not Available [facility] [address] [facility] 1, [place], [address], 10/15/2024 11:56:44 10/15/20 24 10/15/2024 LIPID PROFI LE (MALE ) HDL - direct 47.0 mg/dL >40.0 Not Available [facility] [address] [facility] [address], [place], [address], 10/15/2024 11:56:44 10/15/20 24 10/15/2024 LIPID PROFI LE (MALE ) VLDL - direct 24.4 mg/dL Not Available [facility] [address] [facility] 1, [place], [address], 10/15/2024 11:56:44 10/15/20 24 10/15/2024 LIPID PROFI LE (MALE ) LDL - direct 122.6 mg/dL 0.0-13 0.0 Not Available [facility] [address] [facility] 1, [place], [address], 10/15/2024 11:56:44 10/15/20 24 10/15/2024 TSH TSH 0.99 uIU/m L 0.49-3 .82 normal Not Available [facility] [address] [facility] 1, [place], [address], 10/15/2024 14:01:22 10/15/20 24 10/16/2024 PSA, TOTAL [...] This test was perfo rmed using the BYOM!e ns chemi lumin escen t metho d. Value s obtai coni from diffe rent assay metho ds canno t be used inter john eanighaty . PSA level s, regar dless of value , shoul d not be inter prete d as absol agdaagux evide nce of the prese nce or absen ce of disea se. Not Available [facility] [address] [address] [place], [address], 10/16/2024 06:57:21 12/26/19 24 12/26/2023 XR, knee, 3 view No observ ation record ed. [facility] [address] [place], [address], 10/08/2024 16:01:20 Result Notes None recorded. Problems Name Problem SNOMED Code Status Onset Date Resolution Date Notes Provider Name and Address Organization Details Recorded Time [facility] spotted fever 200170426 Completed ALEX FIERRO, [facility] [address] [place], [address] , [facility] 4 16:11:48 Viral hepatiti s, type A 17442957 Active 2022 Hepatiti s A; 01/06/20 11:27AM by Steve Moreno, Office Visit; Promoted ; acuity set as *; Not Available [facility] 3 03:08:46 Colonosc opy Active 2022 Colonosc opy; 1999, neg. 09/04, neg. 12/11, neg.; 01/06/20 11:27AM by Steve Moreno, Office Visit; Promoted ; acuity set as *; Not Available [facility] 3 03:08:46 Benign hyperten tacos 73134719 Active 2022 HTN; 01/06/20 11:27AM by Steve Moreno, Office Visit; Promoted ; acuity set as *; Not Available [facility] 3 03:08:47 Vasectom y Active 2022 Vasectom y; 01/06/20 11:27AM by Steve Moreno, Office Visit; Promoted ; acuity set as *; Not Available [facility] 3 03:08:47 [facility] hyperten tacos 08608269 Active 2022 Jean-Pierre Eden, [address], [address] [place] [address] , [facility] 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 3 10:16:11 Hyperlip idemia 12697193 Active 2023 JAVIER kapoor [facility], LMauricioL.CMauricio 4 09:29:09 Anxiety 04640319 Active 2023 JAVIER kapoor [facility], L.L.CMauricio 4 09:29:15 Aortic aneurysm 97165377 Active 2023 JAVIERSAMEER kapoor [facility], LMauricioLMaxine 4 09:29:34 Problem Notes None recorded. Procedures Surgical History Date Name Laterality Status Provider Name and Address Organization Details Recorded Time Vasectomy completed LEMUEL NATHAN Chavez [facility], Scottie 10/08/2024 15:53:52 Imaging Results None [...] besylate (bulk) daily 12/26 completed RM/AV DOC; 06419; Recorded 12/11/19 23 10:13AM by Kim Self RN (Authori heidy through Jean-Pierre Eden DO), Refill Request; Mail Order Quantity : 90 Tablet; Mail Order Days: 90 Days; Refill Quantity : 0; Not Available Not Available Not Available losartan potassium (bulk) two times daily 12/26 completed 97135; Recorded 10/10/20 22 2:08PM by Kim Self [...] Updated DateTime 5 180.34 cm 28.7 kg/m2 34088.0 3 g 97.7 [degF] 78 /min 98 % 150/82 mm[Hg] Melina Lemus [facility] 5 11:21:41 Date Recorded Body height Body mass index (BMI) Body weight Heart rate Respiratory rate Oxygen saturation Systolic And Diastolic Provider Name and Address Organization Details Last Updated DateTime 4 180.34 cm 27.9 kg/m2 75150.4 7 g 79 /min 20 /min 98 % 142/76 mm[Hg] JAVIER SELF [facility] 4 10:38:02 Date Recorded Body height Body mass index (BMI) Body weight Oxygen saturation Heart rate Respiratory rate Body temperature Systolic And Diastolic Provider Name and Address Organization Details Last Updated DateTime 5 180.34 cm 27.1 kg/m2 93415.9 2 g 98 % 86 /min 16 /min 98.2 [degF] 146/78 mm[Hg] Rema Browning [facility] 5 15:06:09 Date Recorded Body height Body mass index (BMI) Body weight Respiratory rate Heart rate Oxygen saturation Systolic And Diastolic Provider Name and Address Organization Details Last Updated DateTime 3 180.34 cm 26.9 kg/m2 64710.3 3 g 16 /min 83 /min 97 % 134/76 mm[Hg] JAVIER SELF [facility] 3 09:57:36 Date Recorded Body height Body mass index (BMI) Body weight Oxygen saturation Heart rate Respiratory rate Systolic And Diastolic Provider Name and Address Organization Details Last Updated DateTime 4 180.34 cm 27.6 kg/m2 13492.2 9 g 98 % 86 /min 20 /min 150/92 mm[Hg] LEMUEL NATHAN [facility] 4 15:53:01 Social History Question Answer Notes LastModified by [employer] Details LastModified Time Tobacco Smoking Status Never Smoker JAVIER SELF [facility] 12/26/2023 10:39:54 Are You Blind Or Do You Have Difficulty Seeing? No [email or web address] Information not available 12/26/2023 Are You Deaf Or Do You Have Serious Difficulty Hearing? No [email or web address] Information not available 12/26/2023 What Was The Date Of Your Most Recent Tobacco Screening? 03/11/2025 [email or web address] Information not available 03/11/2025 Do You Have Difficulty Walking Or Climbing Stairs? No [email or web address] Information not available 12/26/2023 Sex: Unknown Functional Status Question Answer Note LastModified by [employer] Details LastModified Time Do you or have you ever used any other forms of tobacco or nicotine? No Information not available 10/08/2024 Are you able to walk independently without assistance or assistive devices? YESWOREST [email or web address] Information not available 12/26/2023 Do you have difficulty doing errands alone? No [email or web address] Information not available 12/26/2023 Are you able to care for yourself independently? Yes [email or web address] Information not available 12/26/2023 Do you have difficulty dressing, bathing, grooming, or toileting? No [email or web address] Information not available 12/26/2023 Do you or have you ever used any nicotine-free cigarettes, vape, or chewing tobacco? No Information not available 10/08/2024 Mental Status Question Answer Note LastModified by Organization D etails LastModified Time Do you have difficulty concentrating, remembering or making decisions? No [id number] Information no t available 12/26/2023 Family History Nothing Reported. Medical History Condition Response Hypertension Y Immunizations Vaccine Type Date Status Note Provider Nam e and Address Organization Details Recorded Time Influenza, split virus, trivalent, preservative 3 completed Not Available [facility] 05/26/2023 02:52:01 Influenza, high-dose, trivalent, PF 7 completed Not Available [facility] 05/26/2023 02:52:01 COVID-19, mRNA, LNP-S, bivalent, PF, 50 mcg/0.5 mL or 25mcg/0.25 mL dose 3 completed ALEX FIERRO [facility] [address] [place], [address], [facility], [facility] 10/08/2024 15:57:02 Past Encounters Encounter ID Performer Location Encounter Start Date Encounter Closed Date Diagnosis/Indication Diagnosis SNOMED-CT Code Diagnosis ICD10 Code Diagnosis IMO Codes Diagnosis Note [id number] Jean-Pierre Eden DO [facility] ([facility]) [address] [place] [address] 06/18/2023 09:45:18 06/18/2023 14:23:08 Active or passive immunization 782223619 Z23 Adult [facility] th examination 918431299 Z00.00 Essential hypertension 26908882 I10 Benign pro static hyperplasia with outflow obstruction 853738903 N40.1 [id number] Jean-Pierre Eden DO [facility] ([facility]) [address] [place] [address] 12/26/2023 10:29:12 12/26/2023 11:02:22 Hyperlipidemia 13639188 E78.5 Anxiety 84334894 F41.9 Essential hypertension 12771959 I10 Aortic aneurysm 96430383 I71.9 Benign hypertension 1072 5009 I10 fell on knee; will make sure no bone chip Pain of ri ght knee joint 2210146930 60292 M25.561 Impacted c erumen of bilateral ears 2308645713 119481 H61.23 water pik used on both ears without complicati on [id number] ALEX FIERRO [facility] ([facility]) [address] [place] [address] 10/08/2024 14:34:30 10/08/2024 16:19:00 Adult health examination 852862068 Z00.00 Screening for malignant neoplasm of prostate 829103176 Z12.5 Aortic aneurysm 85949329 I71.9 Improved with statin. Essential hypertension 59821440 I10 [id number] HUSSAIN CLAROS [facility] ([facility]) [address] [place] [address] 12/15/2024 11:11:23 12/15/2024 13:25:17 Allergic reaction 957101198 T78.40XA No current symptoms of allergic rxn. Rxn sent for pt to have epi pens on hand in case of future reactions. [id number] AYANNA LAROSE TURNER OFF [facility] ([facility]) [address] [place] [address] 03/11/2025 15:00:15 03/11/2025 17:27:33 Otalgia of left ear 4615248979 H92.02 [id number] No abnormalit ies noted on exam. Patient [...] A - [facility] (MEDICARE) Mauricio Whipple [employer] [id number] Mauricio Whipple [employer] 03/11/2025 2 AARP (MEDICARE SUPPLEMENT) Mauricio Whipple [employer] [id number] Mauricio Whipple [employer] 03/11/2025 1 [place]IC[place]: WPS Mauricio Whipple [employer] [id number] Mauricio Sanchez Notes Date Note Type Note Provider Name and Address Organization Details Recorded Time 06/18/2023 text/html Annual WellnessReported by PatientSocial/Behavior al HistoryFor diet and nutrition, patient reportshealthy diet. For fracture risk, patient reportsno history of fracturesandno recent explained fracture. For physical activity, patient reportsexercises on a regular basis. For additional lifestyle factors, patient reportsno tobacco use.ROS as noted in the [facility] Jean-Pierre Eden [address] [place] [address], [phone], [facility] 06/18/2023 10:18:35 12/26/2023 text/html Joint PainReport ed by PatientHPIFor quality, patient reportstinglinganddull . For location, patient reportspain is not radiatingandright knee. For severity, patient reportsno driving impairment. For duration, patient reportspresent <1 month. For associated symptoms, patient reportsno fever.ROS as noted in the [facility] Jean-Pierre Eden [address] [place] [address], [phone], [facility] 12/26/2023 11:01:34 10/08/2024 text/html Medicare Annual [...] as noted in the HPI ALEX FIERRO [address], [address], [facility], [facility] 10/16/2024 13:37:44 12/15/2024 text/html ROS as [...] prior hx of allergic rxn's. HUSSAIN CLAROS, [address], [address], [facility], [facility] 12/15/2024 14:15:58 03/11/2025 text/html EaracheReported by PatientROS as noted in the HPI walk in patientpatient is here today he is not sure if the left ear is clogged, patient said that it just feels worried when wearing a hearing aid. Denies any significant pain or drainage. AYANNA LAROSE [address], [address], [facility] 03/11/2025 17:24:10
--- OUTSIDE RECORDS SUMMARY | 2025-10-08 04:28 | XMS_ITS | Encounter Summary ---
Author Organization [facility] Address [address] [place] [address] Care Team Providers Care Aircraft Engine Assembler Name Role Phone Rashawn Levine Primary Care Provider Unavail able Encounter Details Date Type Department Care Team (Latest Contact Info) Description 03/15/2000 Outpatient Historical [address] [address] Patrick Eastman MD [address] [place] [address] Dysfunct eustachian tube (Primary Dx); Acute pharyngitis Social History Tobacco Use Types Packs/Day Years Used Date Smoking Tobacco: Never Assessed Sex and Gender Information Value Date Recorded Sex Assigned at Not on file 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
--- OUTSIDE RECORDS SUMMARY | 2025-10-08 04:28 | XMS_ITS | Encounter Summary ---
Author Organization [facility] Address [address] [place] [address] Care Team Providers Care Sales Agent Marine Insurance Name Role Phone Rashawn Levine Primary Care Provider Unavail able Encounter Details Date Type Department Care Team (Latest Contact Info) Description 10/27/1999 Outpatient Historical [facility] Family Medicine- [place] [address] [place] [address] Larry Dumont MD [address] [address] Routine medical exam (Primary Dx); Need for prophylactic vaccination with tetanus toxoid alone Social History Tobacco Use Types Packs/Day Years Used Date Smoking Tobacco: Never Assessed Sex and Gender Information Value Date Recorded Sex Assigned at Not on file 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
--- OUTSIDE RECORDS SUMMARY | 2025-10-08 04:28 | XMS_ITS | Clinical Summary ---
Author Organization [facility] Address [address] [place] [address] Care Team Providers Care Catering Sales Manager Name Role Phone Rashawn Levine Primary Care Provider Unavail able Allergies Active Allergy Reactions Criticality Noted Date Comments Alpha-Gal (Clmhdwkcd-Pfhne-3,3-Galactose) Anaphylaxis High 12/26/2024 Doxycycline Unknown 01/31/2024 ?allergy [...] Abstract 07/20/2025 1:10 PM CDT Office Visit [facility] [place] [address] [address] Ame Marie MD 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 [...] on file Legal Sex Male 10:57 AM RADIO FREQUENCY ENGINEER Gender Identity Not on file Sexual [...] 92.5 kg (204 lb) 12/22/2024 8:04 AM RADIO FREQUENCY ENGINEER Height 180.3 cm (5' 11 ) 12/22/2024 8:04 AM RADIO FREQUENCY ENGINEER Body Mass Index 28.45 12/22/2024 8:04 AM RADIO FREQUENCY ENGINEER Plan of Treatment Upcoming Encounters Date Type Department Care Team (Late st Contact Info) Description 07/20/2026 1:10 PM CDT Office Visit [facility] [place] [address] [address] Ame Marie MD [address] [place] [address] Health Maintenance Due Date Last [...] EYE DROPS (07/20/2025 2:18 PM CDT) Narrative [facility] OPHTH[facility] - 07/20/2025 2:18 PM CDT Medications Eye Drops: 2 Drop phenylephrine 2.5 % Route: Topical, Site: Eye, Bilateral ND: 34152-657-18, Lot: [id number], Expiration date: 09/28/2026 2 Drop proparacaine 0.5 % Route: Topical, Site: Eye, Bilateral NDC: 96975-941-52, Lot: [id number], Expiration date: 02/26/2027 2 Drop tropicamide 1 % Route: Topical, Site: Eye, Bilateral NDC: 75363-103-93, Lot: [id number], Expiration date: 10/29/2026 Notes Eye drop orders per protocol for Basic Rear Admiral Eye Exam (Dilated) 1 Drop proparacaine (OPHTHAINE) 0.5% ophthalmic solution prior to tonometry 1 Drop tropicamide (MYDRIACYL) 1% ophthalmic solution 1 Drop phenylephrine (AK-DILATE, MYDFRIN) 2.5% ophthalmic solution Ame Marie MD OPHTH CLINIC PROCEDURES Final R esult Performing Organization Address City/[facility] Co de Phone Number [facility] CLIA# [id number] [address] [place] [address] * OCT, RETINA - OU - BOTH EYES (07/20/2025 1:11 PM CDT) Narrative [facility] OPHTHAL[facility] ORDERS - 07/20/2025 2:19 PM CDT Optical Coherence Tomography ordered to evaluate the status of the macula: RIGHT EYE: Epiretinal membrane with psedohole LEFT EYE: The OCT shows normal retinal contours, with a good foveal depression of normal thickness. The RPE appears healthy. Normal OCT Ame Marie MD OPHTH TOMOGRAPHY Final Result Performing Organization Address [facility] Co de Phone Number [facility] OPHTHALMOLOGY ORDERS from Last [address] [place] [address] [facility] [id number] MEDICARE PART A AND B MEDICARE PART A AND B [facility] [id number] Care Teams Catering Sales Manager Relationship Specialty Start Date End Date Rashawn Levine PA NO ADDRESS ON FILE PCP - General 04/09/08
--- OUTSIDE RECORDS SUMMARY | 2025-10-08 04:28 | XMS_ITS | Encounter Summary ---
Author Organization [facility] Address [address] [place] [address] Care Team Providers Care Toolroom Keeper Name Role Phone Rashawn Levine Primary Care Provider Unavail able Encounter Details Date Type Department Care Team (Latest Contact Info) Description 01/16/2002 Outpatient Historical [facility] Family Medicine- [id number] [place] [address] Larry Dumont MD [address] [address] HYPERTENSION NOS (Primary Dx) Social History Tobacco Use Types Packs/Day Years Used Date Smoking Tobacco: Never Assessed Sex and Gender Information Value Date Recorded Sex Assigned at Not on file 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
--- OUTSIDE RECORDS SUMMARY | 2025-10-08 04:28 | XMS_ITS | Encounter Summary ---
Author Organization [facility] Address [address] [place] [address] Care Team Providers Care Dozer Operator Name Role Phone Rashawn Levine Primary Care Provider Unavail able Encounter Details Date Type Department Care Team (Latest Contact Info) Description 02/04/2001 Outpatient Historical [facility] Medicine- [address] [address] Yovani Kay MD [address] [place] [phone] Elevated blood pressure reading without diagnosis of hypertension (Primary Dx) Social History Tobacco Use Types Packs/Day Years Used Date Smoking Tobacco: Never Assessed Sex and Gender Information Value Date Recorded Sex Assigned at Not on file 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
--- OUTSIDE RECORDS SUMMARY | 2025-10-08 04:28 | XMS_ITS | Encounter Summary ---
Author Organization [facility] Address [address] [place] [address] Care Team Providers Care Mercury Purifier Name Role Phone Rashawn Levine Primary Care Provider Unavail able Encounter Details Date Type Department Care Team (Latest Contact Info) Description 04/28/2003 Outpatient Historical [facility] Family Medicine- [place] [address] [address] [place] [address] Larry Dumont MD [address] [address] LUMBAGO (Primary Dx); JOINT PAIN-L/LEG Social History Tobacco Use Types Packs/Day Years Used Date Smoking Tobacco: Never Assessed Sex and Gender Information Value Date Recorded Sex Assigned at Not on file 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
--- OUTSIDE RECORDS SUMMARY | 2025-10-08 04:28 | XMS_ITS | Encounter Summary ---
Author Organization [facility] Address [address] [place] [address] Care Team Providers Care Home Improvement Installer Name Role Phone Rashawn Levine Primary Care Provider Unavail able Encounter Details Date Type Department Care Team (Latest Contact Info) Description 06/13/2002 Outpatient Historical [facility] Medicine- [address] [place] [address] Larry Dumont MD [address] [address] HYPERTENSION NOS (Primary Dx); DIZZINESS AND GIDDINESS Social History Tobacco Use Types Packs/Day Years Used Date Smoking Tobacco: Never Assessed Sex and Gender Information Value Date Recorded Sex Assigned at Not on file 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
--- OUTSIDE RECORDS SUMMARY | 2025-10-08 04:28 | XMS_ITS | Encounter Summary ---
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
--- OUTSIDE RECORDS SUMMARY | 2025-10-08 04:28 | XMS_ITS | Encounter Summary ---
Author Organization [facility] Address [address] [place] [address] Care Team Providers Care Recreation Programmer Name Role Phone Rashawn Levine Primary Care Provider Unavail able Encounter Details Date Type Department Care Team (Latest Contact Info) Description 08/17/2003 Outpatient Historical [facility] [address] [address] Patrick Eastman MD [address] [place] [address] ACUTE URI NOS (Primary Dx); Dysfunct eustachian tube; ACUTE PHARYNGITIS; HYPERTENSION NOS Social History Tobacco Use Types Packs/Day Years Used Date Smoking Tobacco: Never Assessed Sex and Gender Information Value Date Recorded Sex Assigned at Not on file 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
--- OUTSIDE RECORDS SUMMARY | 2025-10-08 04:28 | XMS_ITS | Encounter Summary ---
Author Organization [facility] Address [address] [place] [address] Care Team Providers Care Electrolysist Name Role Phone Rashawn Levine Primary Care Provider Unavail able Encounter Details Date Type Department Care Team (Latest Contact Info) Description 11/03/2003 Outpatient Historical [facility] [address] [address] Patrick Eastman MD [address] [place] [address] ACUTE FRONTAL SINUSITIS (Primary Dx); OTALGIA NOS; HYPERTENSION NOS Social History Tobacco Use Types Packs/Day Years Used Date Smoking Tobacco: Never Assessed Sex and Gender Information Value Date Recorded Sex Assigned at Not on file Legal Sex Male 4:40 AM 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
--- OUTSIDE RECORDS SUMMARY | 2025-10-08 04:28 | XMS_ITS | Encounter Summary ---
Author Organization [facility] Address [address] [place] [address] Care Team Providers Care Hot Kettle Tender Name Role Phone Rashawn Levine Primary Care Provider Unavail able Encounter Details Date Type Department Care Team (Latest Contact Info) Description 02/21/2001 Outpatient Historical [facility] Family Medicine- [place] [place] [address] Larry Dumont MD [address] [address] Unspecified essential hypertension (Primary Dx) Social History Tobacco Use Types Packs/Day Years Used Date Smoking Tobacco: Never Assessed Sex and Gender Information Value Date Recorded Sex Assigned at Not on file 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
--- OUTSIDE RECORDS SUMMARY | 2025-10-08 04:28 | XMS_ITS | Encounter Summary ---
Author Organization [facility] Address [address] [place] [address] Care Team Providers Care Radiation / Chemistry Technician Name Role Phone Rashawn Levine Primary Care Provider Unavail able Encounter Details Date Type Department Care Team (Latest Contact Info) Description 09/11/2002 Outpatient Historical 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
--- OUTSIDE RECORDS SUMMARY | 2025-10-08 04:28 | XMS_ITS | Encounter Summary ---
Author Organization [facility] Address [address] [place] [address] Care Team Providers Care Commissary Helper Name Role Phone Rashawn Levine Primary Care Provider Unavail able Encounter Details Date Type Department Care Team (Latest Contact Info) Description 03/04/2001 Outpatient Historical [facility] Family Medicine- [place] [address] [place] [address] Larry Dumont MD [address] [address] Unspecified essential hypertension (Primary Dx) Social History Tobacco Use Types Packs/Day Years Used Date Smoking Tobacco: Never Assessed Sex and Gender Information Value Date Recorded Sex Assigned at Not on file 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
--- OUTSIDE RECORDS SUMMARY | 2025-10-08 04:28 | XMS_ITS | Encounter Summary ---
Author Organization [facility] Address [address] [place] [address] Care Team Providers Care Emergency Vehicle Operations Instructor Name Role Phone Rashawn Levine Primary Care Provider Unavail able Encounter Details Date Type Department Care Team (Latest Contact Info) Description 07/12/2001 Outpatient Historical [facility] Medicine- [id number] [place] [address] Larry Dumont MD [address] [address] Neoplasm of unspecified nature of bone, soft tissue, and skin (Primary Dx) Social History Tobacco Use Types Packs/Day Years Used Date Smoking Tobacco: Never Assessed Sex and Gender Information Value Date Recorded Sex Assigned at Not on file 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
[2025-10-08 05:00] VITALS: BP 122/67; PULSE 85; O2SAT 96
[2025-10-08 05:30] VITALS: BP 126/71; PULSE 81; O2SAT 98
--- NOTE | 2025-10-08 05:58 | W.ED.ALLEREA ---
HPI - Allergic Reaction General: Chief complaint: Allergic Reaction Stated complaint: Allergic Reaction Time Seen by Provider: 10/08/25 05:25 History of Present Illness: HPI narrative: Patient is an 80-year-old male with a history of high blood pressure, alpha gal allergy, presents with a chief complaint of concern that he was experiencing severe allergic reaction/anaphylactic shock. Patient woke up around 3 AM this morning, states he had some chest tightness, tingling in his feet and hands (does report chronic peripheral neuropathy), felt that his breathing was weird. Patient self administered epinephrine x 2, 10 minutes apart per recommendation per elevator runner. Patient did not experience any lip, tongue, uvula swelling or facial swelling. Patient denies throat tightness/closing, stridor, wheezing, shortness of breath, chest pain. He has not experienced any abdominal pain, nausea, vomiting or diarrhea. Today, he is not experiencing any muscle cramps and denies a rash. Patient was seen yesterday in the emergency department for similar problem, feels that his symptoms today may have been triggered by eating regular butter at [employer] yesterday evening. Patient also took a tablet of Benadryl at home and has been taking steroids since yesterday. At this time, he is asymptomatic and well-appearing. Related Data Home Medications ?Medication ?Instructions ?Recorded ?Confirmed multivitamin 1 tab PO DAILY 09/28/21 10/07/25 Previous Rx's ?Medication ?Instructions ?Recorded Custom Molded Orthotics #1 ea 10/26/21 sildenafil 50 mg tablet (Viagra) 50 mg PO DAILY PRN sexual activity 01/06/25 #20 tabs amlodipine 5 mg tablet 5 mg PO DAILY #60 tabs 10/07/25 dexamethasone 6 mg tablet 6 mg PO DAILY 5 days #5 tabs 10/07/25 epinephrine 0.3 mg/0.3 mL 0.3 mg (0.3 mL) IM Q10M PRN 10/07/25 injection, auto-injector (EpiPen) anaphylaxis #4 ea finasteride 5 mg tablet 5 mg PO DAILY #90 tabs 10/07/25 losartan 100 mg tablet 100 mg PO DAILY #90 tabs 10/07/25 Allergies Allergy/AdvReac Type Severity Reaction Status Date / Time doxycycline Allergy Mild ALGY-Rash Verified 10/08/25 04:25 Alpha gal Allergy Severe Unresponsiv Uncoded 10/30/25 14:43 e PFSH ED PFS: Medical History Seborrheic keratoses Alpha-gal syndrome Chronic back pain Essential hypertension Spinal stenosis AAA (abdominal aortic aneurysm) Benavides's neuroma Peripheral neuropathy Peyronie disease HTN (hypertension) Urinary retention Surgical History Hx of vasectomy Family History Father , at age 92 Stroke Hypertension Mother , AT AGE 95 COLON CANCER Hypertension Cancer Other CAD (coronary artery disease) Social History Smoking and tobacco/nicotine status: former use of tobacco/nicotine Alcohol intake: current Alcohol intake frequency: few times a month Marital status: Current occupational status: retired Physical Exam Narrative: EXAM NARRATIVE: Vital signs were reviewed. Patient is alert and oriented. No swelling of face, lips, tongue or uvula. There is no stridor. Patient is breathing comfortably, no increased WOB or accessory muscle use. SpO2 is above 95% on RA. Patient has clear lungs b/l, no rhonchi, wheezing or crackles. No hypotension or tachycardia. Abdomen is soft, nondistended and nontender. Patient is moving all extremities, no deformity or gross injury. No lower extremity edema or asymmetry. No rash or urticaria noted. Course Vital Signs: Vital signs: Vital Signs Temperature 97.4 F L 10/08/25 04:18 Pulse Rate 107 H 10/08/25 04:18 Respiratory Rate 18 10/08/25 04:18 Blood Pressure 142/75 10/08/25 04:18 Pulse Oximetry 96 10/08/25 04:18 Oxygen Delivery Me thod Room Air 10/08/25 04:18 MDM - Allergic Reaction Medical Decision Making 80-year-old male presents with a chief complaint of waking with change in breathing, chest tightness, tingling in feet and hands and concern for severe allergic reaction. Patient self-administered epinephrine x 2 prior to coming to the emergency department, last dose around 3:30 this morning. Differential diagnosis includes but is limited to, sleep apnea, restless leg, anxiety/panic attack, ACS, viral upper respiratory infection, pneumonia, asthma exacerbation/COPD, allergic reaction, anaphylaxis, angioedema, other. On initial exam he centrically stable and nontoxic-appearing. He is mildly tachycardic but expect this may be due to recently administered epinephrine. Patient was screened with CBC, BMP, troponin, EKG and observe in the emergency department. No radiology studies performed this visit EKG Data EKG 1: Interpretation: EKG shows normal sinus rhythm with a heart rate of 79, possible left axis deviation, no STEMI or ischemic change. Discharge Plan Discharge Condition: Stable Prescriptions: No Action multivitamin Tablet 1 tab PO DAILY (DME) Custom Molded Orthotics See Rx Instructions .Route .MEDSUPPLY Qty: 1 0RF Rx Instructions: As directed epinephrine [EpiPen] 0.3 mg/0.3 mL auto-injector 0.3 mg IM Q10M PRN (Reason: anaphylaxis) Qty: 4 5RF Rx Instructions: for 4 doses amlodipine 5 mg tablet 5 mg PO DAILY Qty: 60 1RF finasteride 5 mg tablet 5 mg PO DAILY Qty: 90 1RF losartan 100 mg tablet 100 mg PO DAILY Qty: 90 1RF sildenafil [Viagra] 50 mg tablet 50 mg PO DAILY PRN (Reason: sexual activity) Qty: 20 0RF Rx Instructions: administer 30 minutes to 4 hours before activity dexamethasone 6 mg tablet 6 mg PO DAILY 5 Days Qty: 5 0RF Referrals: Guillermo Baez MD [Primary Care Provider, Family Practice] Patient Instructions: Food Allergy (ED), Allergies (ED), Blood Transfusion Reactions (ED), Adverse Drug Reaction (ED) Print Language: Sami Coding Level of Care Code ED Revenue Accounting Manager for Elvis Mclean
--- NOTE | 2025-10-08 06:00 | ECG_ITS ---
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 Measurements Intervals [place] Rate: 79 P: 37 ND: 175 QRS: -2 QRSD: 98 T: 12 QT: 364 QTc: 418 Interpretive Statements SINUS RHYTHM Compared to ECG 04/08/2016 23:33:29 No significant changes Electronically Signed On 10-08-2025 17:21:27 PONY EDGER by Saima Olivier M.D. [email or web address]
[2025-10-08 06:09] VITALS: BP 141/81; PULSE 83; O2SAT 96
[2025-10-08 06:10] LABS: Hematocrit 38.1 % (37-53); Hemoglobin 13.30 g/dL (11.27-16.99); Mean Corpuscular HGB Conc 34.9 g/dL (30-55); Mean Corpuscular Hemoglobin 32.4 pg (27-33); Mean Corpuscular Volume 92.7 fl (82-101); Nucleated Red Blood Cells % 0 %; Platelet Count 210 10^3/cmm (157-399); Red Blood Count 4.11 10^6/uL (3.85-5.65); White Blood Count 12.77 10^3/uL (3.29-11.43)
--- NOTE | 2025-10-08 06:50 | ECG_ITS ---
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 Measurements Intervals Michael Rate: 76 P: 35 VT: 170 QRS: -6 QRSD: 102 T: 17 QT: 377 QTc: 424 Interpretive Statements SINUS RHYTHM Compared to ECG 10/08/2025 06:00:10 No significant changes Electronically Signed On 10-08-2025 17:39:45 POLITICAL SCIENCE FACULTY MEMBER by Saima Olivier M.D. [id number] [id number]
[2025-10-08 07:05] LABS: Chloride 107 mmol/L (98-107); Potassium 4.2 mmol/L (3.5-5.1); Sodium 142 mmol/L (136-145); Troponin(5th) Baseline 12 ng/L (0-15)
[2025-10-08 07:13] LABS: Anion Gap 20.1 (5-19); Blood Urea Nitrogen 16 mg/dL (8-23); Calcium 9.2 mg/dL (8.5-10.5); Carbon Dioxide 19 mmol/L (22-29); Glucose 161 mg/dL (65-115); Osmolality Calculated 297 mOsm/kg (285-295)
[2025-10-08 07:18] VITALS: BP 126/75; PULSE 79; RESP 22; O2SAT 91
== END 2025-10-08 07:47 | disposition home or self-care (01) ==
PROVIDERS: Emergency Provider Emergency Medicine; PCP Family Medicine
DX: T78.40XA Allergy, unspecified, initial encounter (principal); X58.XXXA Exposure to other specified factors, initial encounter; I10 Essential (primary) hypertension; Z87.891 Personal history of nicotine dependence
CPT/HCPCS: 36415; 80048; 84484; 85025; 93005; 99284